=== PATIENT | female | born 1955 | race Caucasian/White ===

== ENCOUNTER 2017-12-12 23:01 | Emergency (ER) | payer OTHER ==
[~2017-12-12] VITALS: Ht 165.1 cm; Wt 136.1 kg
[2017-12-12 23:29] LABS: BASOPHILS # (AUTO) 0.1 (0.0-0.1); BASOPHILS % 0.8 % (0.0-1.0); EOSINOPHILS # (AUTO) 0.2 (0.0-0.4); EOSINOPHILS % 2.3 % (0.0-6.0); HEMATOCRIT 42.6 % (34.2-44.1); HEMOGLOBIN 13.7 g/dL (12.0-16.0); LYMPHOCYTES # (AUTO) 3.3 (1.0-3.2); LYMPHOCYTES % 39.3 % (18.0-39.1); MEAN CORPUSCULAR HEMOGLOBIN 28.6 pg (28-32); MEAN CORPUSCULAR HGB CONC 32.2 g/dL (31-35); MEAN CORPUSCULAR VOLUME 88.9 fL (81-99); MONOCYTES # (AUTO) 0.8 (0.2-0.8); NEUTROPHILS # (AUTO) 3.9 (2.1-6.9); NEUTROPHILS % 47.4 % (38.7-80.0); PLATELET COUNT 232 x10e3/uL (140-360); RED BLOOD COUNT 4.79 x10e6/uL (3.6-5.1); RED CELL DISTRIBUTION WIDTH 13.3 % (11.7-14.4)
[2017-12-12 23:35] LABS: INR 0.92; PARTIAL THROMBOPLASTIN TIME 37.1 seconds (23.8-35.5); PROTHROMBIN TIME 12.8 seconds (11.9-14.5)
[2017-12-12 23:45] LABS: ALANINE AMINOTRANSFERASE 21 IU/L (0-55); ALBUMIN 3.5 g/dL (3.5-5.0); ALKALINE PHOSPHATASE 111 IU/L (40-150); ANION GAP 12.7 mmol/L (8-16); BLOOD UREA NITROGEN 13 mg/dL (7-26); BUN/CREATININE RATIO 16 (6-25); CALCIUM 9.1 mg/dL (8.4-10.2); CARBON DIOXIDE 25 mmol/L (22-29); CHLORIDE 107 mmol/L (98-107); CREATINE KINASE 79 IU/L (29-168); EST GLOMERULAR FILTRATION RATE > 60 ML/MIN (60-); GLUCOSE 117 mg/dL (74-118); MAGNESIUM 1.8 MG/DL (1.3-2.1); POTASSIUM 3.7 mmol/L (3.5-5.1); SODIUM 141 mmol/L (136-145)
[2017-12-12 23:51] LABS: TROPONIN I < 0.001 ng/mL (0-0.300)
[2017-12-13 03:02] LABS: TROPONIN I 0.005 ng/mL (0-0.300)
[2017-12-13 03:14] VITALS: BP 128/83
--- NOTE | 2017-12-13 04:31 | Diagnostic Imaging Report ---
2 views of the chest, PA and lateral Technique: 2 views of the chest Comparison: None Clinical history: Chest pain with rapid heart rate DISCUSSION: Heart/mediastinum: Mildly tortuous aorta. Heart size is upper limits of normal. Lungs/pleural spaces: No consolidation or edema, effusion or pneumothorax. IMPRESSION: No acute abnormality Signed by: Dr Lizette Galo MD on 12/13/2017 12:45 AM
== END 2017-12-13 03:42 | disposition home or self-care (01) ==
LOC: ER 23:01
DX: R00.2 Palpitations (principal); I48.0 Paroxysmal atrial fibrillation; I10 Essential (primary) hypertension
CPT/HCPCS: 36415; 71020; 80053; 82550; 82553; 83735; 83880; 84484; 85025; 85610; 85730; 93005; 99284

== ENCOUNTER 2018-08-30 18:23 | Emergency (ER) | payer OTHER ==
[~2018-08-30] VITALS: Ht 165.1 cm; Wt 136.1 kg
[2018-08-30] MEDS ORDERED: KETOROLAC TROMETHAMINE 60 MG/2 ML VIAL IM ONE (18:45)
--- NOTE | 2018-08-30 19:22 | Diagnostic Imaging Report ---
EXAM: KNEE RIGHT THREE VIEWS, AP, crosstable lateral and oblique, nonstanding INDICATION: Knee pain after extra exercise is COMPARISON: None FINDINGS: BONES: No acute fractures. JOINTS: No malalignment. SOFT TISSUES: Large joint effusion. IMPRESSION: Large joint effusion without underlying fracture. Signed by: Dr. Huyen Wright M.D. on 08/30/2018 7:18 PM
[2018-08-30] MEDS ORDERED: DEXAMETHASONE SOD PHOS 10 MG/1 ML VIAL INJ ONE (19:30)
[2018-08-30] MEDS ORDERED: ORPHENADRINE CITRATE 30 MG/ML VIAL IM ONE (20:00)
[2018-08-30 22:10] VITALS: BP 159/67
--- OUTSIDE RECORDS SUMMARY | 2018-09-01 14:08 | XMS REPORT | CCD ---
Author Author Auto Generated Organization [facility] [place] Address Unknown Phone Unavailable Care Team Providers Care Yield Engineer Name Role Phone Kayley Broussard CP [phone] ChartServer, Login CP Unavailable Daniella Lopez CP Rosa Isela Laguna CP Unavailable Gerald Bruno CP Allergies, Adverse Reactions, Alerts Substance Reaction Status aspirin ?? Active Toradol ?? Active Problem List Condition Effective Dates Status Pain ?? Active
--- OUTSIDE RECORDS SUMMARY | 2018-09-01 14:08 | XMS REPORT | Continuity of Care Document ---
Author Author [facility] Organization Interface Address Unknown Phone Unavailable Problems Problem Status Onset Date Classification Date Reported Comments Source RIGHT KNEE Active 07/24/2018 [facility] [place] UNK Active 07/17/2018 [facility] S83.241A Active 07/17/2018 [facility] RT KNEE Active 04/24/2018 [facility] [place] RIGHT KNEE SCOPE Active 04/23/2018 [facility] KNEE ARTHROSCOPY Active 04/21/2018 [facility] Pain in right knee 02/20/2018 05/22/2018 [facility] M25.561 - PAIN IN RIGHT KNEE 782.3 - OREN Active 02/06/2018 [facility] Z12.31 - ENCNTR SCREEN MAMMOGRAM FOR MA Active 03/07/2017 [place] ENDOMETRIAL HYPERPLASIA Active 08/09/2011 [facility] Pain Active Problem 10/04/2011 SUDHIR Hicks,[facility] Pain Active Problem 06/09/2018 SUDHIR Hicks, [place]UDHIR [place], [place],[facility] [place] Edema, unspecified 05/15/2018 SUDHIR Amanda Bilateral primary osteoarthritis of knee 05/15/2018 SUDHIR Amanda Effusion, right knee 05/22/2018 SUDHIR Hicks ENDOMETRIAL HYPERPLA NOS Active [facility] Medications Medication Details Route Status Patient Instructions Ordering Provider Order Date Source Phenergan 25 mg, Route: IM, ONCE, Dosing Weight 140.909, kg, Start date: 04/24/18 9:38:00 CDT, Stop date: 04/24/18 9:38:00 CDT Inactive 04/24/2018 Pamela 72 HR Scopolamine 0.0139 MG/HR Transdermal Patch 1 patch, Route: TOP, Drug Form: ERFILM, Dosing Weight 140.909, kg, ONCE, Start date: 04/24/18 9:21:00 CDT, Stop date: 04/24/18 9:21:00 CDT Inactive 04/24/2018 [facility] Dexamethasone 4 mg, Route: IVP, ONCE, Dosing Weight 140.909, kg, PRN Nausea & Vomiting, Start date: 04/24/18 8:44:00 CDT Inactive 04/24/2018 [facility] Ondansetron 4 mg, Route: IVP, ONCE, Dosing Weight 140.909, kg, PRN Nausea & Vomiting, Start date: 04/24/18 8:44:00 CDT Inactive 04/24/2018 [facility] Diphenhydramine 12.5 mg, Route: IVP, Drug form: INJ, Q6H, Dosing Weight 140.909, kg, PRN Itching, Start date: 04/24/18 8:44:00 CDT, Duration: 30 day, Stop date: 05/24/18 8:43:00 CDT Inactive 04/24/2018 [facility] Acetaminophen 1,000 mg, Route: PO, Drug form: TAB, ONCE, Dosing Weight 140.909, kg, PRN Pain Score 1-3, Start date: 04/24/18 8:44:00 CDT Inactive 04/24/2018 [facility] Oxycodone 5 mg, Route: PO, Drug form: TAB, Q4H, Dosing Weight 140.909, kg, PRN Pain Score 4-6, Start date: 04/24/18 8:44:00 CDT, Duration: 30 day, Stop date: 05/24/18 8:43:00 CDT Inactive 04/24/2018 [facility] Labetalol 10 mg, Route: IVP, Q5Min, Dosing Weight 140.909, kg, PRN Elevated BP, Start date: 04/24/18 8:44:00 CDT, Duration: 5 doses or times, Stop date: Limited # of times Inactive 04/24/2018 [facility] esmolol 10 mg, Route: IVP, Q5Min, Dosing Weight 140.909, kg, PRN Other -See Comment, Start date: 04/24/18 8:44:00 CDT, Duration: 5 doses or times, Stop date: Limited # of times Inactive 04/24/2018 [facility] Hydralazine 10 mg, Route: IVP, Q20Min, Dosing Weight 140.909, kg, PRN Elevated BP, Start date: 04/24/18 8:44:00 CDT, Duration: 2 doses or times, Stop date: Limited # of times Inactive 04/24/2018 [facility] Flumazenil 0.2 mg, Route: IVP, PRN, Dosing Weight 140.909, kg, PRN Benzodiazepine Reversal, Initial dose, Start date: 04/24/18 8:44:00 CDT, Duration: 30 day, Stop date: 05/24/18 8:43:00 CDT Inactive 04/24/2018 [facility] Fentanyl 50 microgram, Route: IVP, Q5Min, Dosing Weight 140.909, kg, PRN Pain Score 7-10, Priority: Routine, Start date: 04/24/18 8:44:00 CDT, Duration: 2 doses or times, Stop date: Limited # of times Inactive 04/24/2018 [facility] Hydromorphone 0.5 mg, Route: IVP, Q5Min, Dosing Weight 140.909, kg, PRN Pain Score 7-10, Start date: 04/24/18 8:44:00 CDT, Duration: 4 doses or times, Stop date: Limited # of times Inactive 04/24/2018 [facility] Morphine 4 mg, Route: IVP, Q5Min, Dosing Weight 140.909, kg, PRN Pain Score 7-10, Start date: 04/24/18 8:44:00 CDT, Duration: 3 doses or times, Stop date: Limited # of times Inactive 04/24/2018 [facility] Meperidine 12.5 mg, Route: IVP, Q30Min, Dosing Weight 140.909, kg, PRN Other -See Comment, For shivering, Start date: 04/24/18 8:44:00 CDT, Duration: 2 doses or times, Stop date: Limited # of times Inactive 04/24/2018 [facility] Naloxone 0.4 mg, Route: IVP, Q2MIN, Dosing Weight 140.909, kg, PRN Narcotic Reversal, Start date: 04/24/18 8:44:00 CDT, Duration: 8 doses or times, Stop date: Limited # of times Inactive 04/24/2018 [facility] Calcium Chloride 0.0014 MEQ/ML / Potassium Chloride 0.004 MEQ/ML / Sodium Chloride 0.103 MEQ/ML / Sodium Lactate 0.028 MEQ/ML Injectable Solution 1,000 mL, Rate: 125 ml/hr, Infuse over: 8 hr, Route: IV, Dosing Weight 140.909 kg, Total Volume: 1,000, Start date: 04/24/18 8:44:00 CDT, Duration: 30 day, Stop date: 05/24/18 8:43:00 CDT, 2.59, m2 Inactive 04/24/2018 [facility] Zofran 4 mg, 2 mL, Route: IV, Drug form: INJ, Q8H, Dosing Weight 140.909, kg, PRN Nausea, Start date: 04/24/18 8:28:00 CDT, Duration: 30 day, Stop date: 05/24/18 8:27:00 CDTNotes: (Same as: Zofran) MEDICATION WASTE Product Size: 4 mg Product Wasted: ___ mg Inactive 04/24/2018 [facility] Acetaminophen 325 MG / Oxycodone Hydrochloride 5 MG Oral Tablet [Percocet 5/325] 2 tab, Route: PO, Drug Form: TAB, Dosing Weight 140.909, kg, Q4H, PRN Other -See Comment, Start date: 04/24/18 8:28:00 CDT, Duration: 30 day, Stop date: 05/24/18 8:27:00 CDTNotes: Do not exceed 4gm/day of acetaminophen. (Same as: Percocet-5/325) Inactive 04/24/2018 [facility] Morphine 2 mg, 2 mL, Route: IVP, Drug form: SOLN, Q3H, Dosing Weight 140.909, kg, PRN Pain Score 1-3, Start date: 04/24/18 8:28:00 CDT, Duration: 30 day, Stop date: 05/24/18 8:27:00 CDTNotes: Preservative free. (Same as: Morphine Sulfate-PF) Inactive 04/24/2018 [facility] ondansetron (ANES) Route: IV, Drug form: INJ, ONCE, Stop date: 04/24/18 8:27:00 CDT Inactive 04/24/2018 [facility] acetaminophen (ANES) Route: IV, Drug form: INJ, ONCE, Stop date: 04/24/18 8:27:00 CDT Inactive 04/24/2018 [facility] dexamethasone (ANES) Route: IV, Drug form: INJ, ONCE, Stop date: 04/24/18 8:27:00 CDT Inactive 04/24/2018 [facility] hydromorphone (ANES) Route: IV, Drug form: INJ, ONCE, Stop date: 04/24/18 8:27:00 CDT Inactive 04/24/2018 [facility] ceFAZolin (ANES) Route: IV, Drug form: INJ, ONCE, Stop date: 04/24/18 8:22:00 CDT Inactive 04/24/2018 [facility] propofol (ANES) Route: IV, Drug form: INJ, ONCE, Stop date: 04/24/18 8:22:00 CDT Inactive 04/24/2018 [facility] lidocaine (ANES) Route: IV, Drug form: INJ, ONCE, Stop date: 04/24/18 8:22:00 CDT Inactive 04/24/2018 [facility] midazolam (ANES) Route: IV, Drug form: SOLN, ONCE, Stop date: 04/24/18 8:22:00 CDT Inactive 04/24/2018 [facility] fentaNYL (ANES) Route: IV, Drug form: INJ, ONCE, Stop date: 04/24/18 8:12:00 CDT Inactive 04/24/2018 [facility] Lactated Ringers Injection IV (ANES) 1000 mL Route: IV, Total Volume: 1,000, Start date: 04/24/18 7:27:00 CDT, Stop date: 04/24/18 8:27:00 CDT Inactive 04/24/2018 [facility] 72 HR Scopolamine 0.0139 MG/HR Transdermal Patch 1 patch, Route: TOP, Drug Form: ERFILM, Dosing Weight 140.909, kg, ONCE, Start date: 04/24/18 7:04:00 CDT, Stop date: 04/24/18 7:04:00 CDT Inactive 04/24/2018 [facility] Lactated Ringers IV 1,000 mL 1,000 mL, Rate: 40 ml/hr, Infuse over: 25 hr, Route: IV, Dosing Weight 140.909 kg, Total Volume: 1,000, Start date: 04/24/18 6:34:00 CDT, Duration: 30 day, Stop date: 05/24/18 6:33:00 CDT, 2.59, m2 Inactive 04/24/2018 [facility] AMIODarone 100 mg oral tablet 200 mg=2 tab, PO, Daily Active 04/22/2018 [facility] apixaban 5 MG Oral Tablet [Eliquis] 5 mg, PO, Q12H Active 04/22/2018 [facility] Premarin Vaginal 1 appl, Route: VAG, Bedtime, Drug form: CRM/A, Start date: 08/23/11 21:00:00, Duration: 30 day, Stop date: 09/21/11 21:00:00 VAG No Longer Active Curtis 08/24/2011 [facility] nitrofurantoin macrocrystals 100 mg oral capsule 100 mg, 1 cap, PO, Daily, 14 cap, 0, 0, Substitution Allowed, Take until suh catheter removed, CAPTake until suh catheter removed PO Active [place] 08/23/2011 [facility] ibuprofen 600 mg oral tablet 600 mg, 1 tab, PO, Q6H, PRN, 30 tab, 1, 1, Pain, Substitution Allowed, take with foodtake with food PO Active [place] 08/23/2011 [facility] docusate sodium 100 mg oral capsule 100 mg, 1 cap, PO, BID, 60 cap, 1, 1, Substitution Allowed, CAP PO Active [place] 08/23/2011 [facility] acetaminophen-hydrocodone 500 mg-5 mg oral tablet 2 tab, PO, Q6H, PRN, 40 tab, 0, 0, Pain, Substitution Allowed, Maintenance, TAB PO Active [place] 08/23/2011 [facility] Deep Sea Nasal [place] 4 spray, Route: NASAL, QID, Drug form: SOLN, Start date: 08/23/11 13:00:00, Duration: 30 day, Stop date: 09/22/11 9:00:00 NASAL No Longer Active Curtis 08/23/2011 [facility] Mylicon 80 mg, 1 tab, Route: CHEW, Drug form: CHEWTAB, Q6H, Start date: 08/23/11 12:00:00, Duration: 30 day, Stop date: 09/22/11 6:00:00 CHEW No Longer Active Curtis 08/23/2011 [facility] docusate sodium 100 mg, 1 cap, Route: PO, Drug form: CAP, BID, Start date: 08/23/11 11:00:00, Duration: 30 day, Stop date: 09/22/11 9:00:00 PO No Longer Active Curtis 08/23/2011 [facility] Advil 600 mg, 3 tab, Route: PO, Drug form: TAB, Q6H, PRN Pain, Start date: 08/23/11 10:32:00, Duration: 30 day, Stop date: 09/22/11 10:31:00 PO No Longer Active Curtis 08/23/2011 [facility] Deep Sea Nasal [place] 3 spray, Route: NASAL, QID, Drug form: SOLN, Start date: 08/23/11 10:20:00, Duration: 30 day, Stop date: 09/22/11 9:00:00 NASAL No Longer Active Curtis 08/23/2011 [facility] acetaminophen-hydrocodone 500 mg-5 mg oral tablet 2 tab, Route: PO, Drug Form: TAB, Q6H, PRN Pain, Start date: 08/23/11 10:11:00, Duration: 30 day, Stop date: 09/22/11 10:10:00 PO No Longer Active Curtis 08/23/2011 [facility] pneumococcal 23-valent vaccine 0.5 ml, Route: IM, Drug Form: INJ, Start date: 08/23/11 9:00:00, Stop date: 08/23/11 9:00:00 IM No Longer Active [place] [facility]23[facility]2011 [facility], inactivated 0.5 mL, Route: IM, Drug Form: INJ, Start date: 08/23/11 9:00:00, Stop date: 08/23/11 9:00:00 IM No Longer Active SYSTEM 08/23/2011 SUDHIR Hicks,[facility] Pepcid 20 mg, 2 mL, Route: IVP, Drug form: INJ, Q12H, Start date: 08/23/11 9:00:00, Duration: 30 day, Stop date: 09/21/11 21:00:00 IVP No Longer Active Kelvin 08/23/2011 [facility] Lovenox 40 mg, 0.4 mL, Route: SUB-Q, Drug form: INJ, Daily, Start date: 08/23/11 9:00:00, Duration: 30 day, Stop date: 09/21/11 9:00:00 SUB-Q No Longer Active Kelvin 08/23/2011 [facility] nitrofurantoin 100 mg, 1 cap, Route: PO, Drug form: CAP, Daily, Start date: 08/23/11 9:00:00, Duration: 30 day, Stop date: 09/21/11 9:00:00 PO No Longer Active Villatoro 08/23/2011 [facility] morphine 1 mg/ml ROLLER CLEANER (30 mg/30 mL) INJ Syringe 30 mg 30 mg, 30 mL, Route: IV, ROLLER CLEANER Dose: 1 mg, ROLLER CLEANER Lockout: 10 minutes, Continuous Basal Rate: 0 mg, 4 Hour Limit (In MG): 24, Drug Form: INJ, Continuous, Start date: 08/22/11 22:00:00, Duration: 30 day, Stop date: 09/21/11 21:59:00 IV No Longer Active Kelvin 08/23/2011 [facility] Sodium Chloride 0.9% IV 1,000 mL 1,000 mL, Rate: 100 ml/hr, Infuse over: 10 hr, Route: IV, Total Volume: 1,000, Start date: 08/22/11 21:48:00, Duration: 30 day, Stop date: 09/21/11 21:47:00 IV No Longer Active Kelvin 08/23/2011 [facility] Benadryl 25 mg, 0.5 mL, Route: IV, Drug form: INJ, Q6H, PRN Itching, Start date: 08/22/11 21:46:00, Duration: 30 day, Stop date: 09/21/11 21:45:00 IV No Longer Active Kelvin 08/23/2011 [facility] Phenergan 25 mg, 1 mL, Route: IVPB, Drug form: INJ, Q4H, PRN Nausea & Vomiting, Start date: 08/22/11 21:45:00, Duration: 30 day, Stop date: 09/21/11 21:44:00 IVPB No Longer Active Kelvin 08/23/2011 [facility] promethazine 6.25 mg, 0.25 mL, Route: IVPB, Drug form: INJ, ONCE, Start date: 08/22/11 18:54:00, Stop date: 08/22/11 18:54:00 IVPB No Longer Active Kelvin 08/22/2011 [facility] Benadryl 25 mg, Route: IVP, ONCE, PRN Insomnia, Start date: 08/22/11 17:51:00 IVP No Longer Active [place] 08/22/2011 [facility] flumazenil 0.2 mg, 2 mL, Route: IVP, Drug form: INJ, PRN, PRN Other -See Comment, Initial dose, Start date: 08/22/11 16:45:00, Duration: 30 day, Stop date: 09/21/11 16:44:00 IVP No Longer Active [place] 08/22/2011 [facility] naloxone 0.04 mg, 0.1 mL, Route: IVP, Drug form: INJ, Q2MIN, PRN Narcotic Reversal, Start date: 08/22/11 16:45:00, Duration: 8 doses or times, Stop date: Limited # of times IVP No Longer Active [place] 08/22/2011 [facility] promethazine 6.25 mg, 0.25 mL, Route: IVPB, Drug form: INJ, ONCE, Start date: 08/22/11 16:45:00, Stop date: 08/22/11 16:45:00 IVPB No Longer Active [place] 08/22/2011 [facility] ondansetron 4 mg, 2 mL, Route: IVP, Drug form: INJ, ONCE, PRN Nausea & Vomiting, Start date: 08/22/11 16:45:00 IVP No Longer Active [place] 08/22/2011 [facility] acetaminophen 10 mg/mL intravenous solution 1,000 mg, 100 mL, Route: IV, Drug form: INJ, ONCE, PRN Pain, Start date: 08/22/11 16:45:00, Duration: 1 doses or times, Stop date: Limited # of times, Infuse over 15 minutes (for patient weight 50 kg or greater)Infuse over 15 minutes (for patient weight 50 kg or greater) IV No Longer Active [place] 08/22/2011 [facility] hydromorphone 0.5 mg, 0.25 mL, Route: IVP, Drug form: INJ, Q5Min, PRN Pain, Start date: 08/22/11 16:45:00, Duration: 5 doses or times, Stop date: Limited # of times IVP No Longer Active [place] 08/22/2011 [facility] heparin 5,000 unit, Route: SUB-Q, ONCE, Start date: 08/22/11 8:03:00, Stop date: 08/22/11 8:03:00 SUB-Q No Longer Active [place] 08/22/2011 [facility] cefazolin 1 gm, Route: IVPB, Drug form: PDR/INJ, PRE OP, Start date: 08/22/11 3:00:00, Duration: 1 day, Stop date: 08/23/11 2:59:00 IVPB No Longer Active [place] 08/22/2011 [facility] enalapril 5 mg oral tablet 1 tab, PO, Daily, 30 tab, Substitution Allowed, TAB PO Active 08/20/2011 [facility] hydrochlorothiazide 12.5 mg oral capsule 1 cap, PO, Daily, 30 cap, Substitution Allowed PO Active 08/20/2011 [facility] Allergies, Adverse Reactions, Alerts Substance Category Reaction Severity Reaction type Status Date Reported Comments Source aspirin Assertion Drug allergy Active SUDHIR Hicks Toradol Assertion Drug allergy Active SUDHIR Hicks EPINEPHrine Assertion Drug allergy Active SUDHIR Hicks Immunizations Immunization Date Given Site Status Last Updated Comments Source pneumococcal 23-valent vaccine 08/23/2011 Left deltoid completed [place] [facility] [place] influenza virus [facility], inactivated 08/23/2011 Left deltoid completed [place] [facility] [place] pneumococcal 23-valent vaccine 08/23/2011 completed [place] [facility], inactivated 08/23/2011 completed [place] [facility] Results Order Name Results Value Reference Range Date Interpretation Comments Source Knee wo contrast MRI Knee wo contrast MRI INDICATION: Medial and anterior knee pain for weeks. History is performed 04/26/2018. COMPARISON: MR examination performed on 06/06/2018 TECHNIQUE: Multiplanar, multisequence noncontrast imaging of the right knee. FINDINGS: Menisci: Medial meniscus: Absence of the inner two thirds of the meniscal body and inner 3rd of the posterior horn. Irregular morphology and edema of the remaining body. No paracentesis meniscal cyst. No involvement of the posterior root. Meniscocapsular ligaments are not well characterized. Focus of susceptibility artifact suspected posterior to the posterior horn (series 5 image 12). Meniscocapsular ligaments are not clearly identified. Lateral meniscus: Intact. Ligaments: The ACL, PCL, medial and lateral collateral ligaments and the capsular ligaments are intact. Extensor mechanism: The quadriceps tendon, patella and the patellar tendon are intact. Muscles: No signal abnormality in the muscles. Cartilage: High-grade cartilage loss throughout the weightbearing surface of the medial compartment. High-grade cartilage defects throughout the patellar apex and medial facet of the patella. Bone: No fractures identified. Visualized bone marrow signal is within normal limits. Soft tissue: Small joint effusion. No intra-articular joint bodies. No abnormality of the neurovascular structures. IMPRESSION: 1. Absence of inner portions of the medial meniscus body and posterior horn, is consistent with prior meniscectomy. Abnormal findings involving the remnant body could be postsurgical in nature or related to re-tear. 2. High-grade cartilage loss with areas of denuded cartilage in the weightbearing surface of the medial compartment and the medial facet/apex of the patella. 3. Small joint effusion without intra-articular joint bodies. SL: [id number] 08/14/2018 - - Read by: Lisa Lomeli MD Dictated Date/time: 08/14/18 18:32 Electronically Signed by: Lisa Lomeli MD 08/15/18 22:08 FINAL REPORT [place] [place] Knee wo contrast MRI Knee wo contrast MRI EXAMINATION: MRI of the right knee without contrast HISTORY: S83.241A Other tear of medial meniscus, current injury, right knee, initial encounter; medial right knee pain with history of arthroscopy in April 2018; right knee medial meniscus tear COMPARISON: Radiographs dated 02/06/2018 and prior MR dated 02/13/2018 are reviewed. TECHNIQUE: Multiplanar, multisequence magnetic resonance imaging of the right knee is performed with a local coil without contrast according to Dr. Barton's protocol with nearly all proton density weighted imaging. FINDINGS: Menisci: --Medial: There is a horizontal tear of the medial meniscus extending to the superior articular surface near the body/posterior horn junction, which appears new since January 2018 (series 6 and 7, image 5 through 6 and series 4 and 5, images 20 through 21). The medial meniscus is otherwise intact. --Lateral: The anterior horn, body, and posterior horn are intact. Ligaments: The cruciate ligaments are intact. The medial collateral ligament and lateral collateral ligament complex are intact. Extensor mechanism: The extensor mechanism is intact. Muscles: There is normal signal intensity and muscle bulk of the musculature at the knee. Cartilage: Within the medial compartment, there is deep partial thickness chondrosis involving the central and posterior weightbearing medial femoral condyle. Within the lateral compartment, there is no focal chondrosis or subchondral marrow edema. Within the patellofemoral compartment, there is a focal area of high-grade, deep partial thickness to near full-thickness chondrosis at the junction of the medial patellar facet and patellar median ridge at the superior third of the patella. Bone: There are no acute fractures. There is an unchanged small T2 hyperintense lesion within the medial femoral condyle most consistent with a low-grade chondroid lesion such as an enchondroma or chondroid rest. Soft tissues: There is a small to moderate-sized knee effusion. There is no Boateng's cyst. There is mild subcutaneous edema superficial to the patellar tendon. IMPRESSION: 1. Horizontal tear of the right knee medial meniscus which extends to the superior articular surface near the body/posterior horn junction, which appears new since January 2018. 2. Mild to moderate medial and patellofemoral compartment, bicompartmental chondrosis of the right knee as described in detail above. 3. Small to moderate-sized right knee effusion. 4. Intact right knee cruciate and collateral ligaments. 06/06/2018 - - Read by: David Lomas MD Dictated Date/time: 06/08/18 09:56 Electronically Signed by: David Lomas MD 06/08/18 10:39 FINAL REPORT [facility] [place] Chest w contrast CT Chest w contrast CT EXAM: CT CHEST WITH CONTRAST DATE: 05/01/2018 8:55 AM CDT INDICATION: - R93.8 Abnormal findings on diagnostic imaging of other specified body structures TECHNIQUE: Volumetric CT acquisition of the chest, following intravenous contrast. Axial, sagittal and coronal reconstructions. Axial MIP reconstructions are created at the acquisition workstation. IV Contrast: 100 mL of Omnipaque 300. DLP: 841 mGy-cm COMPARISON: No available prior chest CTs for comparison. FINDINGS: Lines and Tubes: None. Lower Neck: Few low-density thyroid nodules measuring 5 mm in size noted. Heart and Great Vessels: No cardiomegaly. No pericardial effusion. Minimal scattered calcifications seen along the left anterior descending and LCx coronary arteries. Mild aortic atherosclerotic disease. Normal size of the ascending aorta main pulmonary artery. No central pulmonary embolism identified. Lymph Nodes: No hilar, mediastinal, axillary or internal mammary lymphadenopathy. Lungs: Few tiny dense nodules scattered in both lungs, likely sequela of old granulomatous lung disease. Otherwise, lungs are clear, without consolidation or nodules. Pleura: No pleural effusion or pneumothorax. Upper abdomen: Postcholecystectomy surgical clips noted. Mild diffuse hepatic steatosis. Low-density lesion is seen in the right upper renal pole, likely represents renal cyst. Bones and Soft Tissues: Unremarkable. IMPRESSION: 1. Lungs are essentially clear with no evidence of consolidation or worrisome lung nodules. 2. No evidence of mediastinal masses or lymphadenopathy. 3. Minimal calcification seen along the left anterior descending and LCx coronary arteries as well as aorta. RECOMMENDATIONS: None. 05/01/2018 - - Read by: Cory Corado MD Dictated Date/time: 05/01/18 11:07 Electronically Signed by: Cory Corado MD 05/01/18 11:15 FINAL REPORT [facility] Chest 2 views DX Chest 2 views DX Exam: Two-view chest x-ray Reason for Exam: - [id number] Encounter for other preprocedural examination. Arthroscopy of the knee. Comparison Exam: None Discussion: Cardiac silhouette is within normal limits for size. The left hilar region appears slightly nodular. Short-term follow-up CT scan of the chest with contrast should be considered. Both hemidiaphragms well visualized. No pulmonary edema or pleural effusions. No focal lung consolidations. Trachea is midline. No acute bony abnormalities. Impression: 1. The left hilar region appears slightly nodular. Short-term follow-up CT scan of the chest with contrast should be considered. 04/22/2018 - - Read by: Haseeb Denton MD Dictated Date/time: 04/22/18 08:41 Electronically Signed by: Haseeb Denton MD 04/22/18 08:44 FINAL REPORT SUDHIR Virgena Knee wo contrast MRI Knee wo contrast MRI EXAMINATION: MRI of the right knee without contrast. HISTORY: M25.561 Pain in right knee - M25.561 Pain in right knee; AGE: 62 years GENDER: Female COMPARISON: There are no radiographs available for review. TECHNIQUE: Multiplanar, multisequence magnetic resonance imaging of the right knee is performed with an extremity coil without contrast. FINDINGS: Menisci: Medial: The anterior horn, body, and posterior horn are intact. Lateral: The anterior horn, body, and posterior horn are intact. Ligaments: The anterior cruciate ligament and posterior cruciate ligament are intact. The medial collateral ligament and lateral collateral ligament complex are intact. Extensor mechanism: The extensor mechanism is intact. Muscles: There is normal signal intensity and muscle bulk of the musculature at the knee. Cartilage: There is no significant reactive marrow change. The patellofemoral articular cartilage is intact.. The medial tibiofemoral articular cartilage demonstrates grade 2 chondral thinning.. The lateral tibiofemoral articular cartilage demonstrates grade 2 chondral thinning.. Bone: There are no acute fractures. 6 mm T2 hyperintense focus in the distal femoral metaphysis suggestive of chondral rest. Soft tissues: There is a large knee joint effusion. There is no Boateng's cyst. IMPRESSION: 1. Grade 2 chondral thinning in the tibiofemoral compartments without focal chondral defect. 2. Large knee joint effusion. 02/13/2018 - - Read by: Víctor Hernandez MD Dictated Date/time: 02/13/18 11:02 Electronically Signed by: Víctor Hernandez MD 02/13/18 11:26 FINAL REPORT YAMILE SUDHIR Hicks Knee 3 Views Bilateral DX Knee 3 Views Bilateral DX EXAM: XR BILATERAL KNEE 3 VIEWS DATE: 02/06/2018 2:51 PM CDT INDICATION: - knee pain COMPARISON: None available TECHNIQUE: Weightbearing views of right knee - 3 views Weightbearing views of left knee - 3 views FINDINGS: Right knee: No fracture, periosteal reaction, or erosions identified. Joint alignment is normal. No joint space narrowing identified. Minimal patellofemoral compartment osteophytes noted. Soft tissues are unremarkable. No joint effusion identified. Left knee: No fracture, periosteal reaction, or erosions identified. Joint alignment is normal. No joint space narrowing identified. Minimal patellofemoral compartment osteophytes noted. Soft tissues are unremarkable. No joint effusion identified. IMPRESSION: Minimal bilateral patellofemoral compartment osteoarthrosis. 02/06/2018 - - Read by: Jason Velasquez MD Dictated Date/time: 02/06/18 16:57 Electronically Signed by: Jason Velasquez MD 02/06/18 16:58 FINAL REPORT [facility] Breast Mammo Scrn RAO incl CAD MA Breast Mammo Scrn RAO incl CAD MA - BREAST MAMMO SCRN RAO INCL CAD MA BILATERAL DIGITAL SCREENING MAMMOGRAM WITH CAD: 03/29/2017 CLINICAL: Z12.31 Encounter For Screening Mammogram For Malignant Neoplasm Of Breast. Current study was evaluated with a Computer Aided Detection (CAD) system. Comparison is made to exams dated: 08/15/2014 mammogram, 05/31/2013 mammogram and 07/03/2011 mammogram. There are scattered fibroglandular densities in both breasts. There is a biopsy clip in the left breast. No significant masses, calcifications, or other findings are seen in either breast. There has been no significant interval change. IMPRESSION: NEGATIVE There is no mammographic evidence of malignancy. A 1 year screening mammogram is recommended. Professional services are provided by the [facility]. Rosana Acuna M.D., kg/penmikayla:04/02/2017 09:48:25 Repairer Screen Crusher: Clary Ponce This exam was dictated and interpreted by [id number] at [facility]. letter sent: Normal exam Mammogram BI-RADS: 1 Negative 03/29/2017 - - Read by: Rosana Acuna MD Dictated Date/time: 04/02/17 09:48 Electronically Signed by: Rosana Acuna MD 04/02/17 09:48 FINAL REPORT SUDHIR Hicks HEMATOLOGY Hct 30.5 % 36.0 - 48.0 08/23/2011 [facility] HEMATOLOGY Hgb 10.6 g/dL 12.0 - 16.0 08/23/2011 [facility] CHEMISTRY Magnesium Lvl 1.7 mg/dL 1.8 - 2.4 08/23/2011 [facility] CHEMISTRY Glucose Lvl 112.0 mg/dL 08/23/2011 NA 1Interpretive Data: Reference Ranges : 0 - 7 days : 41 - 90 mg/dL7 days - 150 yrs : 70 - 99 mg/dL (fasting), based on the clinical recommendations of the [place] [employer]. [facility] CHEMISTRY Sodium Lvl 142.0 meq/L 135 - 145 08/23/2011 Normal [facility] CHEMISTRY Creatinine Lvl 0.7 mg/dL 0.5 - 1.4 08/23/2011 Normal [facility] CHEMISTRY BUN 7.0 mg/dL 7 - 22 08/23/2011 Normal [facility] CHEMISTRY Chloride Lvl 107.0 meq/L 95 - 109 08/23/2011 Normal [facility] CHEMISTRY Potassium Lvl 4.5 meq/L 3.5 - 5.1 08/23/2011 Normal [facility] CHEMISTRY Albumin Lvl 2.7 g/dL 3.5 - 5.0 08/23/2011 [facility] CHEMISTRY ALT 75.0 U/L 0 - 65 08/23/2011 [facility] CHEMISTRY CO2 23.0 meq/L 24 - 32 08/23/2011 [facility]OW [facility] CHEMISTRY Calcium Lvl 7.7 mg/dL 8.5 - 10.5 08/23/2011 [facility] CHEMISTRY Total Protein 5.2 g/dL 6.4 - 8.4 08/23/2011 [facility] CHEMISTRY Alk Phos 66.0 U/L 39 - 136 08/23/2011 Normal [facility] CHEMISTRY Bili Total 0.4 mg/dL 0.2 - 1.3 08/23/2011 Normal [facility] CHEMISTRY AST 71.0 U/L 0 - 37 08/23/2011 [facility] CHEMISTRY Globulin 2.5 g/dL 2.0 - 4.0 08/23/2011 Normal [facility] CHEMISTRY A/G Ratio 1.1 0.7 - 1.6 08/23/2011 Normal [facility] CHEMISTRY AGAP 16.5 meq/L 10.0 - 20.0 08/23/2011 Normal [facility] CHEMISTRY B/C Ratio 10.0 6 - 25 08/23/2011 Normal [facility] HEMATOLOGY MPV 9.6 fL 7.4 - 10.4 08/23/2011 [facility] HEMATOLOGY MCH 29.9 pg 27.0 - 31.0 08/23/2011 [facility] HEMATOLOGY RDW 14.4 % 11.5 - 14.5 08/23/2011 Normal [facility] HEMATOLOGY Platelet 191.0 K/CMM 133 - 450 08/23/2011 [facility] HEMATOLOGY MCHC 35.2 g/dL 32.0 - 36.0 08/23/2011 [facility] HEMATOLOGY MCV 84.9 fL 81.0 - 99.0 08/23/2011 [facility] HEMATOLOGY Hct 31.1 % 36.0 - 48.0 08/23/2011 [facility] HEMATOLOGY WBC 12.4 K/CMM 3.7 - 10.4 08/23/2011 [facility] HEMATOLOGY Hgb 10.9 g/dL 12.0 - 16.0 08/23/2011 [facility] HEMATOLOGY RBC 3.66 M/CMM 4.20 - 5.40 08/23/2011 [facility] HEMATOLOGY Monocytes # 0.6 K/CMM 0.0 - 0.8 08/23/2011 [facility] HEMATOLOGY Basophils # 0.0 K/CMM 0.0 - 0.2 08/23/2011 [facility] HEMATOLOGY Eosinophils # 0.0 K/CMM 0.0 - 0.5 08/23/2011 Normal [facility] HEMATOLOGY Basophils 0.2 % 0.0 - 1.0 08/23/2011 [facility] HEMATOLOGY Monocytes 5.0 % 2.0 - 12.0 08/23/2011 [facility] HEMATOLOGY Eosinophils 0.1 % 0.0 - 4.0 08/23/2011 [facility] HEMATOLOGY Lymphocytes 7.7 % 20.0 - 40.0 08/23/2011 [facility] HEMATOLOGY Segs-Bands # 10.7 K/CMM 1.5 - 8.1 08/23/2011 [facility] HEMATOLOGY Lymphocytes # 0.9 K/CMM 1.0 - 5.5 08/23/2011 [facility] HEMATOLOGY Segs 87.0 % 45.0 - 75.0 08/23/2011 [facility] CHEMISTRY AGAP 16.4 meq/L 10.0 - 20.0 08/22/2011 Normal [facility] CHEMISTRY CO2 21.0 meq/L 24 - 32 08/22/2011 [facility] CHEMISTRY Calcium Lvl 7.5 mg/dL 8.5 - 10.5 08/22/2011 [facility] CHEMISTRY Creatinine Lvl 0.7 mg/dL 0.5 - 1.4 08/22/2011 Normal [facility] CHEMISTRY Glucose Lvl 146.0 mg/dL 08/22/2011 NA 2Interpretive Data: Reference Ranges : 0 - 7 days : 41 - 90 mg/dL7 days - 150 yrs : 70 - 99 mg/dL (fasting), based on the clinical recommendations of the [place] [employer]. [facility] CHEMISTRY BUN 10.0 mg/dL 7 - 22 08/22/2011 Normal [facility] CHEMISTRY Potassium Lvl 4.4 meq/L 3.5 - 5.1 08/22/2011 Normal [facility] CHEMISTRY Sodium Lvl 139.0 meq/L 135 - 145 08/22/2011 Normal [facility] CHEMISTRY Chloride Lvl 106.0 meq/L 95 - 109 08/22/2011 Normal [facility] HEMATOLOGY Eosinophils 0.1 % 0.0 - 4.0 08/22/2011 Normal [facility] HEMATOLOGY Basophils 0.1 % 0.0 - 1.0 08/22/2011 Normal [facility] HEMATOLOGY Segs-Bands # 12.2 K/CMM 1.5 - 8.1 08/22/2011 [facility] HEMATOLOGY Lymphocytes # 0.9 K/CMM 1.0 - 5.5 08/22/2011 [facility]OW [facility] HEMATOLOGY Monocytes # 0.1 K/CMM 0.0 - 0.8 08/22/2011 Normal [facility] HEMATOLOGY Eosinophils # 0.0 K/CMM 0.0 - 0.5 08/22/2011 Normal [facility] HEMATOLOGY Basophils # 0.0 K/CMM 0.0 - 0.2 08/22/2011 Normal [facility] HEMATOLOGY Segs 92.1 % 45.0 - 75.0 08/22/2011 [place] [facility] HEMATOLOGY Plt Morph Normal (08/22/2011 17:00:00) ?? 08/22/2011 Normal [facility] HEMATOLOGY Monocytes 0.8 % 2.0 - 12.0 08/22/2011 [facility]OW [facility] HEMATOLOGY Lymphocytes 6.9 % 20.0 - 40.0 08/22/2011 [facility] HEMATOLOGY RBC Morph Normal (08/22/2011 17:00:00) ?? 08/22/2011 Normal [facility] HEMATOLOGY MPV 9.9 fL 7.4 - 10.4 08/22/2011 Normal [facility] HEMATOLOGY Platelet 185.0 K/CMM 133 - 450 08/22/2011 Normal [facility] HEMATOLOGY RDW 14.0 % 11.5 - 14.5 08/22/2011 Normal [facility] HEMATOLOGY MCHC 34.4 g/dL 32.0 - 36.0 08/22/2011 Normal [facility] HEMATOLOGY MCH 29.2 pg 27.0 - 31.0 08/22/2011 Normal [facility] HEMATOLOGY Hct 36.6 % 36.0 - 48.0 08/22/2011 Normal [facility] HEMATOLOGY MCV 84.9 fL 81.0 - 99.0 08/22/2011 Normal [facility] HEMATOLOGY Hgb 12.6 g/dL 12.0 - 16.0 08/22/2011 Normal [facility] HEMATOLOGY RBC 4.31 M/CMM 4.20 - 5.40 08/22/2011 Normal [facility] HEMATOLOGY WBC 13.3 K/CMM 3.7 - 10.4 08/22/2011 [facility] CHEMISTRY POC A LA 0.6 mMol/L 0.5 - 2.2 08/22/2011 Normal [facility] CHEMISTRY POC A Glu 108.0 mg/dL 65 - 110 08/22/2011 Normal [facility] CHEMISTRY POC A Source ART 08/22/2011 NA [facility] CHEMISTRY POC A Temp 37.0 Rina 08/22/2011 NA [facility] CHEMISTRY POC A pH 7.39 7.35 - 7.45 08/22/2011 Normal [facility] CHEMISTRY POC A PO2 129.0 mm[Hg] 80 - 100 08/22/2011 [facility] CHEMISTRY POC A BE 1.0 mMol/L -2-2 - 2 08/22/2011 Normal [facility] CHEMISTRY POC A PCO2 43.0 mm[Hg] 35 - 45 08/22/2011 Normal [facility] CHEMISTRY POC A O2 Sat 99.0 % 95.0 - 100.0 08/22/2011 Normal [facility] CHEMISTRY POC A HCO3 26.0 mMol/L 22 - 26 08/22/2011 Normal [facility] CHEMISTRY POC A Ca Ion 1.04 mMol/L 1.16 - 1.30 08/22/2011 LOW [facility] CHEMISTRY POC A Na 135.0 meq/L 135 - 145 08/22/2011 Normal [facility] CHEMISTRY POC A Hct 39.0 % 36.0 - 48.0 08/22/2011 Normal [facility] CHEMISTRY POC A K 3.5 meq/L 3.5 - 5.1 08/22/2011 Normal [facility] BLOOD BANK RESULTS ABO/Rh AB NEG 08/22/2011 Unknown [facility] BLOOD BANK RESULTS Antibody Scrn Negative (08/22/2011 07:56:00) ?? 08/22/2011 Normal [facility] CHEMISTRY U Preg Negative (08/22/2011 06:55:00) ?? >Negative 08/22/2011 Normal [facility] CHEMISTRY Creatinine Lvl 0.7 mg/dL 0.5 - 1.4 08/20/2011 Normal [facility] CHEMISTRY BUN 10.0 mg/dL 7 - 22 08/20/2011 Normal [facility] CHEMISTRY Potassium Lvl 4.5 meq/L 3.5 - 5.1 08/20/2011 Normal [facility] CHEMISTRY Sodium Lvl 140.0 meq/L 135 - 145 08/20/2011 Normal [facility] CHEMISTRY Glucose Lvl 92.0 mg/dL 08/20/2011 NA 3Interpretive Data: Reference Ranges : 0 - 7 days : 41 - 90 mg/dL7 days - 150 yrs : 70 - 99 mg/dL (fasting), based on the clinical recommendations of the [place] [employer]. [facility] CHEMISTRY Calcium Lvl 8.9 mg/dL 8.5 - 10.5 08/20/2011 Normal [facility] CHEMISTRY Chloride Lvl 101.0 meq/L 95 - 109 08/20/2011 Normal [facility] CHEMISTRY CO2 30.0 meq/L 24 - 32 08/20/2011 Normal [facility] CHEMISTRY AGAP 13.5 meq/L 10.0 - 20.0 08/20/2011 Normal [facility] CHEMISTRY AST 22.0 U/L 0 - 37 08/20/2011 Normal [facility] CHEMISTRY Bili Total 0.4 mg/dL 0.2 - 1.3 08/20/2011 Normal [facility] CHEMISTRY Alk Phos 90.0 U/L 39 - 136 08/20/2011 Normal [facility] CHEMISTRY Bili Direct 0.1 mg/dL 0.0 - 0.3 08/20/2011 Normal [facility] CHEMISTRY ALT 30.0 U/L 0 - 65 08/20/2011 Normal [facility] CHEMISTRY Albumin Lvl 3.5 g/dL 3.5 - 5.0 08/20/2011 Normal [facility] CHEMISTRY Total Protein 7.0 g/dL 6.4 - 8.4 08/20/2011 Normal [facility] CHEMISTRY A/G Ratio 1.0 0.7 - 1.6 08/20/2011 Normal [facility] CHEMISTRY Globulin 3.5 g/dL 2.0 - 4.0 08/20/2011 Normal [facility] CHEMISTRY Bili Indirect 0.3 mg/dL 0.0 - 1.0 08/20/2011 Normal [facility] HEMATOLOGY Basophils 0.5 % 0.0 - 1.0 08/20/2011 Normal [facility] HEMATOLOGY Monocytes # 0.7 K/CMM 0.0 - 0.8 08/20/2011 Normal [facility] HEMATOLOGY Lymphocytes # 1.7 K/CMM 1.0 - 5.5 08/20/2011 Normal [facility] HEMATOLOGY Segs-Bands # 4.7 K/CMM 1.5 - 8.1 08/20/2011 Normal [facility] HEMATOLOGY Basophils # 0.0 K/CMM 0.0 - 0.2 08/20/2011 Normal [facility] HEMATOLOGY Eosinophils # 0.2 K/CMM 0.0 - 0.5 08/20/2011 Normal [facility] HEMATOLOGY Segs 64.3 % 45.0 - 75.0 08/20/2011 Normal [facility] HEMATOLOGY Eosinophils 2.3 % 0.0 - 4.0 08/20/2011 Normal [facility] HEMATOLOGY Monocytes 9.6 % 2.0 - 12.0 08/20/2011 Normal [facility] HEMATOLOGY Lymphocytes 23.3 % 20.0 - 40.0 08/20/2011 Normal [facility] HEMATOLOGY INR 0.99 0.85 - 1.17 08/20/2011 Normal 4Interpretive Data: RECOMMENDED RANGES FOR PROTIME INR: 2.0-3.0 for most medical and surgical thromboembolic states. 2.5-3.5 for artificial heart valves and recurrent embolism.INR SHOULD BE USED ONLY FOR PATIENTS ON STABLE ANTICOAGULANT THERAPY. [facility] HEMATOLOGY PT 13.1 s 12.0 - 14.7 08/20/2011 Normal [facility] HEMATOLOGY PTT 31.0 s 22.9 - 35.8 08/20/2011 Normal 5Interpretive Data: Heparin Therapeutic Range: 57 - 92 Seconds [facility] HEMATOLOGY Platelet 218.0 K/CMM 133 - 450 08/20/2011 Normal [facility] HEMATOLOGY MPV 9.8 fL 7.4 - 10.4 08/20/2011 Normal [facility] HEMATOLOGY MCV 86.6 fL 81.0 - 99.0 08/20/2011 Normal [facility] HEMATOLOGY MCH 29.3 pg 27.0 - 31.0 08/20/2011 Normal [facility] HEMATOLOGY RBC 4.69 M/CMM 4.20 - 5.40 08/20/2011 Normal [facility] HEMATOLOGY MCHC 33.8 g/dL 32.0 - 36.0 08/20/2011 Normal [facility] HEMATOLOGY RDW 13.9 % 11.5 - 14.5 08/20/2011 Normal [facility] HEMATOLOGY WBC 7.3 K/CMM 3.7 - 10.4 08/20/2011 Normal [facility] Vital Signs Vital Sign Value Date Comments Source Systolic (mm Hg) 128 04/24/2018 [facility] Diastolic (mm Hg) 94 04/24/2018 [facility] Respitory Rate 13 04/24/2018 [facility] Systolic (mm Hg) 132 04/24/2018 [facility] Diastolic (mm Hg) 88 04/24/2018 [facility] Respitory Rate 12 04/24/2018 [facility] Systolic (mm Hg) 138 04/24/2018 [facility] Diastolic (mm Hg) 72 04/24/2018 [facility] Respitory Rate 12 04/24/2018 [facility] Height 165.1 cm 04/22/2018 [facility] Weight 140.909 04/22/2018 [facility] BMI Calculated 51.69 04/22/2018 [facility] Diastolic (mm Hg) 59.0 08/23/2011 [facility] Respitory Rate 18.0 08/23/2011 [facility] Systolic (mm Hg) 89.0 08/23/2011 [facility] Heart Rate 69.0 08/23/2011 [facility] Temperature Oral (F) 97.8 F 08/23/2011 [facility] Heart Rate 79.0 08/23/2011 [facility] Respitory Rate 18.0 08/23/2011 [facility] Systolic (mm Hg) 97.0 08/23/2011 [facility] Diastolic (mm Hg) 62.0 08/23/2011 [facility] Temperature Oral (F) 97.4 F 08/23/2011 [facility] Temperature Oral (F) 98.0 F 08/23/2011 [facility] Heart Rate 76.0 08/23/2011 [facility] Respitory Rate 18.0 08/23/2011 [facility] Systolic (mm Hg) 90.0 08/23/2011 [facility] Diastolic (mm Hg) 57.0 08/23/2011 [facility] Height 165.1 cm 08/22/2011 [facility] Weight 122.727 08/22/2011 [facility] Height 165.1 cm 08/20/2011 [facility] Weight 122.727 08/20/2011 [facility] Encounters Location Location Details Encounter Type Encounter Number Reason For Visit Attending Provider ADM Date DC Date Status Source [facility] Inpatient [id number] BAM GONZALEZ 08/22/2011 08/23/2011 Active [facility] [place] [facility] [id number] David Stephen III 03/29/2017 03/30/2017 [facility] [place] [facility] Outpatient [facility] [place] [facility] [id number] Renetta Baron 02/06/2018 02/07/2018 [facility] [place] [facility] [place] [facility] [id number] Renetta Baron 02/13/2018 02/14/2018 [facility] [place] [facility] Out[facility] [place] [facility] [id number] Rogelio Veloz 04/22/2018 04/23/2018 [facility] [place] [facility] Day Surgery [id number] Salbador Barton Jr 04/24/2018 04/24/2018 [facility] [place] OP Therapy Patients [id number] Salbador Barton Jr 04/28/2018 05/28/2018 [facility] [place] [facility] Outpatient [facility] - [place] [facility] [id number] Rogelio Veloz 05/01/2018 05/02/2018 [facility] [place] [facility] Outpatient [facility] - [place] [facility] [id number] Salbador Barton Jr 06/06/2018 06/07/2018 [facility] [place] Procedures Procedure Code Date Perfomer Comments Source Abdominal hysterectomy [id number] [facility] [place] Bunionectomy [id number] [facility] [place] Dilation and curettage [id number] [facility] [place] Laparoscopic cholecystectomy [id number] [facility] [place] Abdominal hysterectomy [id number] [facility] [place] Bunionectomy [id number] [facility] [place] Dilation and curettage [id number] [facility] [place] Laparoscopic cholecystectomy [id number] [facility] [place] Abdominal hysterectomy [id number] [facility] Bunionectomy [id number] [facility] Dilation and curettage [id number] [facility] Laparoscopic cholecystectomy [id number] [facility] Abdominal hysterectomy [id number] [facility] [place] Bunionectomy [id number] [facility] [place] Dilation and curettage [id number] [facility] [place] Laparoscopic cholecystectomy [id number] [facility] [place]
--- OUTSIDE RECORDS SUMMARY | 2018-09-01 14:08 | XMS REPORT | Summary of Care ---
Author Author [facility] [place] Organization [facility] [place] Address Unknown Phone Unavailable Encounter HQ Jose_randall(FIN) [id number] Date(s): 04/22/18 - 04/22/18 [facility] Outpatient Imaging [facility] [address] [phone] Discharge Disposition: Home or Self Care Attending Physician: Rogelio Veloz MD Vital Signs No data available for this section Problem List Condition Effective Dates Status Health Status Informant Pain(Confirmed) Active Allergies, Adverse Reactions, Alerts Substance Reaction Severity Status aspirin Active Toradol Active EPINEPHrine Active Medications No data available for this section Results No data available for this section Immunizations Given and Recorded Vaccine Date Status Refusal Reason pneumococcal 23-valent vaccine 08/23/11 Given influenza virus vaccine, inactivated 08/23/11 Given Procedures Procedure Date Related Diagnosis Body Site Status Abdominal hysterectomy Completed Bunionectomy Completed Dilation and curettage Completed Laparoscopic cholecystectomy Completed Social History Social History Type Response Smoking Status Never smoker; Exposure to Tobacco Smoke None; Cigarette Smoking Last 365 Days No; Reg Smoking Cessation Counseling No entered on: 04/22/18 Assessment and Plan No data available for this section
--- OUTSIDE RECORDS SUMMARY | 2018-09-01 14:08 | XMS REPORT | CCD ---
Author Author Auto Generated Organization [facility] Outpatient Imaging - [place] Address Unknown Phone Unavailable Care Team Providers Care Hydro Plant Technician Name Role Phone Toby Lilia CP Unavailable Aarti Kayley CP [phone] ChartServer, Login CP Unavailable Peter Mayenissa Brian CP Daniella Lopez CP SYSTEM, SYSTEM CP Unavailable Allison Cyr PP Allergies, Adverse Reactions, Alerts Substance Reaction Status aspirin ?? Active Toradol ?? Active Problem List Condition Effective Dates Status Pain ?? Active Medications Medication Instructions Start Date End Date Status pneumococcal 0.5 ml, Route: IM, Drug Form: INJ, 08/23/2011 08/23/2011 Completed 23-valent vaccine Start date: 08/23/11 9:00:00, Stop date: 08/23/11 9:00:00 influenza virus 0.5 mL, Route: IM, Drug Form: INJ, 08/23/2011 08/23/2011 Completed vaccine, inactivated Start date: 08/23/11 9:00:00, Stop date: 08/23/11 9:00:00 Immunizations Vaccine Date Status influenza virus vaccine, inactivated 08/23/2011 Auth (Verified) pneumococcal 23-valent vaccine 08/23/2011 Auth (Verified)
--- OUTSIDE RECORDS SUMMARY | 2018-09-01 14:08 | XMS REPORT | Summary of Care ---
Author Author [facility] Outpatient Imaging [facility] Outpatient Imaging [facility] Address Unknown Phone Unavailable Encounter HQ Jose_randall(FIN) [id number] Date(s): 05/01/18 - 05/01/18 [facility] [address] [address] [facility], [address] [place] [phone] Discharge Disposition: Home or Self Care Attending [...]
--- OUTSIDE RECORDS SUMMARY | 2018-09-01 14:08 | XMS REPORT | Summary of Care ---
Author Author [facility] Outpatient Imaging - [place] Organization [facility] Outpatient Imaging - [place] Address Unknown Phone Unavailable Encounter HQ Encntr_[email or web address](FIN) [id number] Date(s): 03/29/17 - 03/29/17 [facility] Outpatient Imaging - [place] [address] [place] [phone] Discharge Disposition: Home or Self Care Attending Physician: David Baldwin MD Vital Signs No data available for this section Problem List Condition Effective Dates Status Health Status Informant Pain(Confirmed) Active Allergies, Adverse Reactions, Alerts Substance Reaction Severity Status aspirin Active Toradol Active Medications No data available for this section Results No data available for this section Immunizations Given and Recorded Vaccine Date Status Refusal Reason influenza virus vaccine, inactivated 08/23/11 Given pneumococcal 23-valent vaccine 08/23/11 Given Procedures No data available for this section Social History No data available for this section Assessment and Plan No data available for this section
--- OUTSIDE RECORDS SUMMARY | 2018-09-01 14:08 | XMS REPORT | CCD ---
Author Author Auto Generated Organization [facility] Address Unknown Phone Unavailable Care Team Providers Care Show Card Writer Name Role Phone YAMILE León CP Unavailable Rogelio Veloz CP Lilia Luis CP Unavailable Sydnie Lunsford CP Unavailable Haroldo Guajardo CP Unavailable Francisca Pritchard [place] Unavailable Wanda Robledo CP Unavailable Melanie Lilly CP Smiley Dejesus CP Unavailable Giana Hope CP Unavailable Clay Hooper CP Richelle Johnston CP Megan Jaffe CP Unavailable Rosana Sarmiento CP Unavailable Kayley Broussard CP [phone] Willie Barnes CP Unavailable Lópezfebruary CP Unavailable Maria Elena Peters CP Unavailable Luis Angel Trevino CP Gabriela Medina CP [phone] Natalee Espinosa CP Unavailable Uma Mayen RP Pradip Curtis CP Unavailable Daniella Lopez CP Kieran Acevedo CP Nadine Miguel CP [phone] Vibha Holcomb CP [phone] Ezio Muñoz CP Unavailable SYSTEM, SYSTEM CP Unavailable Kell Warren CP Unavailable Rashad Nunez CP Unavailable Alexa Reich CP Yamilka Villatoro CP Raven Reddy CP [phone] KaylenMalissa CP Unavailable Steven Peters CP [phone] Pablo Hicks CP Unavailable Marci Hope CP Kevin Rubin CP [phone] Beatriz Quezada CP Jean Yost CP Unavailable Octaviano Ram CP NedDana mckeon CP Gerald Bruno CP Allergies, Adverse Reactions, Alerts Substance Reaction Status aspirin ?? Active Toradol ?? Active Problem List Condition Effective Dates Status Pain ?? Active Medications Medication Instructions Start Date End Date Status heparin 5,000 unit, Route: SUB-Q, ONCE, 08/22/2011 08/22/2011 Completed Start date: 08/22/11 8:03:00, Stop date: 08/22/11 8:03:00 acetaminophen-hydroc 2 tab, PO, Q6H, PRN, 40 tab, 0, 0, 08/23/2011 ?? Ordered odone 500 mg-5 mg Pain, Substitution Allowed, oral tablet Maintenance, TAB influenza virus 0.5 mL, Route: IM, Drug Form: INJ, 08/23/2011 08/23/2011 Completed vaccine, inactivated Daily, Start date: 08/23/11 9:00:00, Duration: 1 doses or times, Stop date: 08/23/11 9:00:00 pneumococcal 0.5 ml, Route: IM, Drug Form: INJ, 08/23/2011 08/23/2011 Completed 23-valent vaccine Daily, Start date: 08/23/11 9:00:00, Duration: 1 doses or times, Stop date: 08/23/11 9:00:00 cefazolin 1 gm, Route: IVPB, Drug form: 08/22/2011 08/22/2011 Completed PDR/INJ, PRE OP, Start date: 08/22/11 3:00:00, Duration: 1 day, Stop date: 08/23/11 2:59:00 Sodium Chloride 0.9% 1,000 mL, Rate: 100 ml/hr, Infuse 08/22/2011 08/23/2011 Discontinued IV 1,000 mL over: 10 hr, Route: IV, Total Volume: 1,000, Start date: 08/22/11 21:48:00, Duration: 30 day, Stop date: 09/21/11 21:47:00 Advil 600 mg, 3 tab, Route: PO, Drug 08/23/2011 08/23/2011 Discontinued form: TAB, Q6H, PRN Pain, Start date: 08/23/11 10:32:00, Duration: 30 day, Stop date: 09/22/11 10:31:00 acetaminophen-hydroc 2 tab, Route: PO, Drug Form: TAB, 08/23/2011 08/23/2011 Discontinued odone 500 mg-5 mg Q6H, PRN Pain, Start date: 08/23/11 oral tablet 10:11:00, Duration: 30 day, Stop date: 09/22/11 10:10:00 nitrofurantoin 100 mg, 1 cap, PO, Daily, 14 cap, 08/23/2011 ?? Ordered macrocrystals 100 mg 0, 0, Substitution Allowed, Take oral capsule until suh catheter removed, CAP Take until suh catheter removed Benadryl 25 mg, 0.5 mL, Route: IV, Drug 08/22/2011 08/23/2011 Discontinued form: INJ, Q6H, PRN Itching, Start date: 08/22/11 21:46:00, Duration: 30 day, Stop date: 09/21/11 21:45:00 Phenergan 25 mg, 1 mL, Route: IVPB, Drug 08/22/2011 08/23/2011 Discontinued form: INJ, Q4H, PRN Nausea & Vomiting, Start date: 08/22/11 21:45:00, Duration: 30 day, Stop date: 09/21/11 21:44:00 Pepcid 20 mg, 2 mL, Route: IVP, Drug form: 08/23/2011 08/23/2011 Discontinued INJ, Q12H, Start date: 08/23/11 9:00:00, Duration: 30 day, Stop date: 09/21/11 21:00:00 Benadryl 25 mg, Route: IVP, ONCE, PRN 08/22/2011 08/22/2011 Completed Insomnia, Start date: 08/22/11 17:51:00 ibuprofen 600 mg 600 mg, 1 tab, PO, Q6H, PRN, 30 08/23/2011 ?? Ordered oral tablet tab, 1, 1, Pain, Substitution Allowed, take with food take with food Lovenox 40 mg, 0.4 mL, Route: SUB-Q, Drug 08/23/2011 08/23/2011 Discontinued form: INJ, Daily, Start date: 08/23/11 9:00:00, Duration: 30 day, Stop date: 09/21/11 9:00:00 Premarin Vaginal 1 appl, Route: VAG, Bedtime, Drug 08/23/2011 08/23/2011 Canceled form: CRM/A, Start date: 08/23/11 21:00:00, Duration: 30 day, Stop date: 09/21/11 21:00:00 Deep Sea Nasal [place] 4 spray, Route: NASAL, QID, Drug 08/23/2011 08/23/2011 Discontinued form: SOLN, Start date: 08/23/11 13:00:00, Duration: 30 day, Stop date: 09/22/11 9:00:00 pneumococcal 0.5 ml, Route: IM, Drug Form: INJ, 08/23/2011 08/23/2011 Completed 23-valent vaccine Start date: 08/23/11 9:00:00, Stop date: 08/23/11 9:00:00 influenza virus 0.5 mL, Route: IM, Drug Form: INJ, 08/23/2011 08/23/2011 Completed vaccine, inactivated Start date: 08/23/11 9:00:00, Stop date: 08/23/11 9:00:00 Deep Sea Nasal [place] 3 spray, Route: NASAL, QID, Drug 08/23/2011 08/23/2011 Discontinued form: SOLN, Start date: 08/23/11 10:20:00, Duration: 30 day, Stop date: 09/22/11 9:00:00 docusate sodium 100 100 mg, 1 cap, PO, BID, 60 cap, 1, 08/23/2011 ?? Ordered mg oral capsule 1, Substitution Allowed, CAP Mylicon 80 mg, 1 tab, Route: CHEW, Drug 08/23/2011 08/23/2011 Discontinued form: CHEWTAB, Q6H, Start date: 08/23/11 12:00:00, Duration: 30 day, Stop date: 09/22/11 6:00:00 nitrofurantoin 100 mg, 1 cap, Route: PO, Drug 08/23/2011 08/23/2011 Discontinued form: CAP, Daily, Start date: 08/23/11 9:00:00, Duration: 30 day, Stop date: 09/21/11 9:00:00 docusate sodium 100 mg, 1 cap, Route: PO, Drug 08/23/2011 08/23/2011 Discontinued form: CAP, BID, Start date: 08/23/11 11:00:00, Duration: 30 day, Stop date: 09/22/11 9:00:00 flumazenil 0.2 mg, 2 mL, Route: IVP, Drug 08/22/2011 08/22/2011 Discontinued form: INJ, PRN, PRN Other -See Comment, Initial dose, Start date: 08/22/11 16:45:00, Duration: 30 day, Stop date: 09/21/11 16:44:00 naloxone 0.04 mg, 0.1 mL, Route: IVP, Drug 08/22/2011 08/22/2011 Discontinued form: INJ, Q2MIN, PRN Narcotic Reversal, Start date: 08/22/11 16:45:00, Duration: 8 doses or times, Stop date: Limited # of times promethazine 6.25 mg, 0.25 mL, Route: IVPB, Drug 08/22/2011 08/22/2011 Discontinued form: INJ, ONCE, Start date: 08/22/11 16:45:00, Stop date: 08/22/11 16:45:00 ondansetron 4 mg, 2 mL, Route: IVP, Drug form: 08/22/2011 08/22/2011 Discontinued INJ, ONCE, PRN Nausea & Vomiting, Start date: 08/22/11 16:45:00 acetaminophen 10 1,000 mg, 100 mL, Route: IV, Drug 08/22/2011 08/22/2011 Completed mg/mL intravenous form: INJ, ONCE, PRN Pain, Start solution date: 08/22/11 16:45:00, Duration: 1 doses or times, Stop date: Limited # of times, Infuse over 15 minutes (for patient weight 50 kg or greater) Infuse over 15 minutes (for patient weight 50 kg or greater) hydromorphone 0.5 mg, 0.25 mL, Route: IVP, Drug 08/22/2011 08/22/2011 Discontinued form: INJ, Q5Min, PRN Pain, Start date: 08/22/11 16:45:00, Duration: 5 doses or times, Stop date: Limited # of times morphine 1 mg/ml MANAGEMENT SME 30 mg, 30 mL, Route: IV, MANAGEMENT SME Dose: 08/22/2011 08/23/2011 Discontinued (30 mg/30 mL) INJ 1 mg, MANAGEMENT SME Lockout: 10 minutes, Syringe 30 mg Continuous Basal Rate: 0 mg, 4 Hour Limit (In MG): 24, Drug Form: INJ, Continuous, Start date: 08/22/11 22:00:00, Duration: 30 day, Stop date: 09/21/11 21:59:00 promethazine 6.25 mg, 0.25 mL, Route: IVPB, Drug 08/22/2011 08/22/2011 Discontinued form: INJ, ONCE, Start date: 08/22/11 18:54:00, Stop date: 08/22/11 18:54:00 enalapril 5 mg oral 1 tab, PO, Daily, 30 tab, 08/20/2011 ?? Ordered tablet Substitution Allowed, TAB hydrochlorothiazide 1 cap, PO, Daily, 30 cap, 08/20/2011 ?? Ordered 12.5 mg oral capsule Substitution Allowed Immunizations Vaccine Date Status influenza virus vaccine, inactivated 08/23/2011 Auth (Verified) pneumococcal 23-valent vaccine 08/23/2011 Auth (Verified) Vital Signs Most recent to oldest [Reference Range]: 1 2 3 Height 165.10 cm (08/22/2011 07:26:00) ?? 165.10 cm (08/20/2011 15:51:00) ? Temperature Oral [96.4-99.1 DegF] 97.8 DegF (08/23/2011 15:15:00) ?? 97.4 DegF (08/23/2011 11:56:00) ?? 98.0 DegF (08/23/2011 08:47:00) ?? Systolic Blood Pressure [90-140 mmHg] 89 mmHg *LOW* (08/23/2011 15:15:00) ?? 97 mmHg (08/23/2011 11:56:00) ?? 90 mmHg (08/23/2011 08:47:00) ?? Diastolic Blood Pressure [60-90 mmHg] 59 mmHg *LOW* (08/23/2011 15:15:00) ?? 62 mmHg (08/23/2011 11:56:00) ?? 57 mmHg *LOW* (08/23/2011 08:47:00) ?? Respiratory Rate [14-20 BRMIN] 18 BRMIN (08/23/2011 15:15:00) ?? 18 BRMIN (08/23/2011 11:56:00) ?? 18 BRMIN (08/23/2011 08:47:00) ?? Peripheral Pulse Rate [60-100 bpm] 69 bpm (08/23/2011 15:15:00) ?? 79 bpm (08/23/2011 11:56:00) ?? 76 bpm (08/23/2011 08:47:00) ?? Weight 122.727 kg (08/22/2011 07:26:00) ?? 122.727 kg (08/20/2011 15:51:00) ? Results BLOOD BANK RESULTS Most recent to [Reference Range]: 1 2 3 ABO/Rh AB NEG *Unknown* (08/22/2011 07:56:00) ? Antibody Scrn Negative (08/22/2011 07:56:00) ? CHEMISTRY Most recent to [Reference Range]: 1 2 3 Sodium Lvl [135-145 mEq/L] 142 mEq/L (08/23/2011 04:14:00) ?? 139 mEq/L (08/22/2011 17:00:00) ?? 140 mEq/L (08/20/2011 10:25:00) ?? Potassium Lvl [3.5-5.1 mEq/L] 4.5 mEq/L (08/23/2011 04:14:00) ?? 4.4 mEq/L (08/22/2011 17:00:00) ?? 4.5 mEq/L (08/20/2011 10:25:00) ?? Chloride Lvl [95-109 mEq/L] 107 mEq/L (08/23/2011 04:14:00) ?? 106 mEq/L (08/22/2011 17:00:00) ?? 101 mEq/L (08/20/2011 10:25:00) ?? CO2 [24-32 mEq/L] 23 mEq/L *LOW* (08/23/2011 04:14:00) ?? 21 mEq/L *LOW* (08/22/2011 17:00:00) ?? 30 mEq/L (08/20/2011 10:25:00) ?? AGAP [10.0-20.0 mEq/L] 16.5 mEq/L (08/23/2011 04:14:00) ?? 16.4 mEq/L (08/22/2011 17:00:00) ?? 13.5 mEq/L (08/20/2011 10:25:00) ?? Creatinine Lvl [0.5-1.4 mg/dL] 0.7 mg/dL (08/23/2011 04:14:00) ?? 0.7 mg/dL (08/22/2011 17:00:00) ?? 0.7 mg/dL (08/20/2011 10:25:00) ?? BUN [7-22 mg/dL] 7 mg/dL (08/23/2011 04:14:00) ?? 10 mg/dL (08/22/2011 17:00:00) ?? 10 mg/dL (08/20/2011 10:25:00) ?? B/C Ratio [6-25] 10 (08/23/2011 04:14:00) ? Glucose Lvl 112 mg/dL 1 *NA* (08/23/2011 04:14:00) ?? 146 mg/dL 2 *NA* (08/22/2011 17:00:00) ?? 92 mg/dL 3 *NA* (08/20/2011 10:25:00) ?? Total Protein [6.4-8.4 g/dL] 5.2 g/dL *LOW* (08/23/2011 04:14:00) ?? 7.0 g/dL (08/20/2011 10:25:00) ? Albumin Lvl [3.5-5.0 g/dL] 2.7 g/dL *LOW* (08/23/2011 04:14:00) ?? 3.5 g/dL (08/20/2011 10:25:00) ? Globulin [2.0-4.0 g/dL] 2.5 g/dL (08/23/2011 04:14:00) ?? 3.5 g/dL (08/20/2011 10:25:00) ? A/G Ratio [0.7-1.6] 1.1 (08/23/2011 04:14:00) ?? 1.0 (08/20/2011 10:25:00) ? Calcium Lvl [8.5-10.5 mg/dL] 7.7 mg/dL *LOW* (08/23/2011 04:14:00) ?? 7.5 mg/dL *LOW* (08/22/2011 17:00:00) ?? 8.9 mg/dL (08/20/2011 10:25:00) ?? Magnesium Lvl [1.8-2.4 mg/dL] 1.7 mg/dL *LOW* (08/23/2011 04:14:00) ? ALT [0-65 U/L] 75 U/L *HI* (08/23/2011 04:14:00) ?? 30 U/L (08/20/2011 10:25:00) ? AST [0-37 U/L] 71 U/L *HI* (08/23/2011 04:14:00) ?? 22 U/L (08/20/2011 10:25:00) ? Alk Phos [39-136 U/L] 66 U/L (08/23/2011 04:14:00) ?? 90 U/L (08/20/2011 10:25:00) ? Bili Total [0.2-1.3 mg/dL] 0.4 mg/dL (08/23/2011 04:14:00) ?? 0.4 mg/dL (08/20/2011 10:25:00) ? Bili Direct [0.0-0.3 mg/dL] 0.1 mg/dL (08/20/2011 10:25:00) ? Bili Indirect [0.0-1.0 mg/dL] 0.3 mg/dL (08/20/2011 10:25:00) ? U Preg [>Negative] Negative (08/22/2011 06:55:00) ? POC A Hct [36.0-48.0 %] 39.0 % (08/22/2011 11:40:00) ? POC A Ca Ion [1.16-1.30 mMol/L] 1.04 mMol/L *LOW* (08/22/2011 11:40:00) ? POC A K [3.5-5.1 mEq/L] 3.5 mEq/L (08/22/2011 11:40:00) ? POC A Source ART *NA* (08/22/2011 11:40:00) ? POC A Temp 37.0 DegC *NA* (08/22/2011 11:40:00) ? POC A pH [7.35-7.45] 7.39 (08/22/2011 11:40:00) ? POC A PCO2 [35-45 mmHg] 43 mmHg (08/22/2011 11:40:00) ? POC A PO2 [80-100 mmHg] 129 mmHg *HI* (08/22/2011 11:40:00) ? POC A HCO3 [22-26 mMol/L] 26 mMol/L (08/22/2011 11:40:00) ? POC A BE [-2-2 mMol/L] 1 mMol/L (08/22/2011 11:40:00) ? POC A O2 Sat [95.0-100.0 %] 99.0 % (08/22/2011 11:40:00) ? POC A Glu [65-110 mg/dL] 108 mg/dL (08/22/2011 11:40:00) ? POC A LA [0.5-2.2 mMol/L] 0.6 mMol/L (08/22/2011 11:40:00) ? POC A Na [135-145 mEq/L] 135 mEq/L (08/22/2011 11:40:00) ? 1Interpretive Data: Reference Ranges : 0 - 7 days : 41 - 90 mg/dL7 days - 150 yrs : 70 - 99 mg/dL (fasting), based on the clinical recommendations of the [place] [employer]. 2Interpretive Data: Reference Ranges : 0 - 7 days : 41 - 90 mg/dL7 days - 150 yrs : 70 - 99 mg/dL (fasting), based on the clinical recommendations of the [place] [employer]. 3Interpretive Data: Reference Ranges : 0 - 7 days : 41 - 90 mg/dL7 days - 150 yrs : 70 - 99 mg/dL (fasting), based on the clinical recommendations of the [place] [employer]. HEMATOLOGY Most recent to oldest [Reference Range]: 1 2 3 WBC [3.7-10.4 K/CMM] 12.4 K/CMM *HI* (08/23/2011 04:14:00) ?? 13.3 K/CMM *HI* (08/22/2011 17:00:00) ?? 7.3 K/CMM (08/20/2011 10:25:00) ?? RBC [4.20-5.40 M/CMM] 3.66 M/CMM *LOW* (08/23/2011 04:14:00) ?? 4.31 M/CMM (08/22/2011 17:00:00) ?? 4.69 M/CMM (08/20/2011 10:25:00) ?? Hgb [12.0-16.0 g/dL] 10.6 g/dL *LOW* (08/23/2011 14:15:00) ?? 10.9 g/dL *LOW* (08/23/2011 04:14:00) ?? 12.6 g/dL (08/22/2011 17:00:00) ?? Hct [36.0-48.0 %] 30.5 % *LOW* (08/23/2011 14:15:00) ?? 31.1 % *LOW* (08/23/2011 04:14:00) ?? 36.6 % (08/22/2011 17:00:00) ?? MCV [81.0-99.0 fL] 84.9 fL (08/23/2011 04:14:00) ?? 84.9 fL (08/22/2011 17:00:00) ?? 86.6 fL (08/20/2011 10:25:00) ?? MCH [27.0-31.0 pg] 29.9 pg (08/23/2011 04:14:00) ?? 29.2 pg (08/22/2011 17:00:00) ?? 29.3 pg (08/20/2011 10:25:00) ?? MCHC [32.0-36.0 g/dL] 35.2 g/dL (08/23/2011 04:14:00) ?? 34.4 g/dL (08/22/2011 17:00:00) ?? 33.8 g/dL (08/20/2011 10:25:00) ?? RDW [11.5-14.5 %] 14.4 % (08/23/2011 04:14:00) ?? 14.0 % (08/22/2011 17:00:00) ?? 13.9 % (08/20/2011 10:25:00) ?? Platelet [133-450 K/CMM] 191 K/CMM (08/23/2011 04:14:00) ?? 185 K/CMM (08/22/2011 17:00:00) ?? 218 K/CMM (08/20/2011 10:25:00) ?? MPV [7.4-10.4 fL] 9.6 fL (08/23/2011 04:14:00) ?? 9.9 fL (08/22/2011 17:00:00) ?? 9.8 fL (08/20/2011 10:25:00) ?? Segs [45.0-75.0 %] 87.0 % *HI* (08/23/2011 04:14:00) ?? 92.1 % *HI* (08/22/2011 17:00:00) ?? 64.3 % (08/20/2011 10:25:00) ?? Lymphocytes [20.0-40.0 %] 7.7 % *LOW* (08/23/2011 04:14:00) ?? 6.9 % *LOW* (08/22/2011 17:00:00) ?? 23.3 % (08/20/2011 10:25:00) ?? Monocytes [2.0-12.0 %] 5.0 % (08/23/2011 04:14:00) ?? 0.8 % *LOW* (08/22/2011 17:00:00) ?? 9.6 % (08/20/2011 10:25:00) ?? Eosinophils [0.0-4.0 %] 0.1 % (08/23/2011 04:14:00) ?? 0.1 % (08/22/2011 17:00:00) ?? 2.3 % (08/20/2011 10:25:00) ?? Basophils [0.0-1.0 %] 0.2 % (08/23/2011 04:14:00) ?? 0.1 % (08/22/2011 17:00:00) ?? 0.5 % (08/20/2011 10:25:00) ?? Segs-Bands # [1.5-8.1 K/CMM] 10.7 K/CMM *HI* (08/23/2011 04:14:00) ?? 12.2 K/CMM *HI* (08/22/2011 17:00:00) ?? 4.7 K/CMM (08/20/2011 10:25:00) ?? Lymphocytes # [1.0-5.5 K/CMM] 0.9 K/CMM *LOW* (08/23/2011 04:14:00) ?? 0.9 K/CMM *LOW* (08/22/2011 17:00:00) ?? 1.7 K/CMM (08/20/2011 10:25:00) ?? Monocytes # [0.0-0.8 K/CMM] 0.6 K/CMM (08/23/2011 04:14:00) ?? 0.1 K/CMM (08/22/2011 17:00:00) ?? 0.7 K/CMM (08/20/2011 10:25:00) ?? Eosinophils # [0.0-0.5 K/CMM] 0.0 K/CMM (08/23/2011 04:14:00) ?? 0.0 K/CMM (08/22/2011 17:00:00) ?? 0.2 K/CMM (08/20/2011 10:25:00) ?? Basophils # [0.0-0.2 K/CMM] 0.0 K/CMM (08/23/2011 04:14:00) ?? 0.0 K/CMM (08/22/2011 17:00:00) ?? 0.0 K/CMM (08/20/2011 10:25:00) ?? RBC Morph Normal (08/22/2011 17:00:00) ? Plt Morph Normal (08/22/2011 17:00:00) ? PT [12.0-14.7 seconds] 13.1 seconds (08/20/2011 10:25:00) ? INR [0.85-1.17] 0.99 4 (08/20/2011 10:25:00) ? PTT [22.9-35.8 seconds] 31.0 seconds 5 (08/20/2011 10:25:00) ? 4Interpretive Data: RECOMMENDED RANGES FOR PROTIME INR: 2.0-3.0 for most medical and surgical thromboembolic states. 2.5-3.5 for artificial heart valves and recurrent embolism.INR SHOULD BE USED ONLY FOR PATIENTS ON STABLE ANTICOAGULANT THERAPY. 5Interpretive Data: Heparin Therapeutic Range: 57 - 92 Seconds
--- OUTSIDE RECORDS SUMMARY | 2018-09-01 14:08 | XMS REPORT | Summary of Care ---
Author Author [facility] Organization [facility] Address Unknown Phone Unavailable Encounter MAIKEL Andrews(HAMILTON) [id number] Date(s): 04/24/18 - 04/24/18 [facility] [address] [place] [address]- [facility] [phone] Discharge Disposition: Home or Self Care Attending Physician: Salbador Wade MD Referring Physician: Salbador Wade MD Vital Signs 1 2 3 Most recent to oldest [Reference Range]: 165.1 cm (04/22/18 9:19 AM) Height 128/94 mmHg (04/24/18 10:30 AM) 132/88 mmHg (04/24/18 10:00 AM) 138/72 mmHg (04/24/18 9:30 AM) Blood Pressure [90-140/60-90 mmHg] 13 BRMIN *LOW* (04/24/18 10:30 AM) 12 BRMIN *LOW* (04/24/18 10:00 AM) 12 BRMIN *LOW* (04/24/18 9:30 AM) Respiratory Rate [14-20 BRMIN] 140.909 kg (04/22/18 9:19 AM) Weight 51.69 m2 (04/22/18 9:19 AM) Body Mass Index Problem List Condition Effective Dates Status Health Status Informant Pain(Confirmed) Active Allergies, Adverse Reactions, Alerts Substance Reaction Severity Status aspirin Active Toradol Active EPINEPHrine Active Medications acetaminophen (ANES) Route: IV, Drug form: INJ, ONCE, Stop date: 04/24/18 8:27:00 CDT Start Date: 04/24/18 Stop Date: 04/24/18 Status: Completed AMIODarone 100 mg oral tablet 200 mg=2 tab, PO, Daily Start Date: 04/22/18 Status: Ordered ANES acetaminophen 1,000 mg, Route: PO, Drug form: TAB, ONCE, Dosing Weight 140.909, kg, PRN Pain S core 1-3, Start date: 04/24/18 8:44:00 CDT Start Date: 04/24/18 Stop Date: 04/24/18 Status: Discontinued ANES dexamethasone 4 mg, Route: IVP, ONCE, Dosing Weight 140.909, kg, PRN Nausea & Vomiting, Start date: 04/24/18 8:44:00 CDT Start Date: 04/24/18 Stop Date: 04/24/18 Status: Discontinued ANES diphenhydrAMINE 12.5 mg, Route: IVP, Drug form: INJ, Q6H, Dosing Weight 140.909, kg, PRN Itching , Start date: 04/24/18 8:44:00 CDT, Duration: 30 day, Stop date: 05/24/18 8:43:0 0 CDT Start Date: 04/24/18 Stop Date: 04/24/18 Status: Discontinued ANES esmolol 10 mg, Route: IVP, Q5Min, Dosing Weight 140.909, kg, PRN Other -See Comment, Sta rt date: 04/24/18 8:44:00 CDT, Duration: 5 doses or times, Stop date: Limited # of times Start Date: 04/24/18 Stop Date: 04/24/18 Status: Discontinued ANES fentaNYL 50 microgram, Route: IVP, Q5Min, Dosing Weight 140.909, kg, PRN Pain Score 7-10, Priority: Routine, Start date: 04/24/18 8:44:00 CDT, Duration: 2 doses or times, Stop date: Limited # of times Start Date: 04/24/18 Stop Date: 04/24/18 Status: Completed ANES fentaNYL 25 microgram, Route: IVP, Q5Min, Dosing Weight 140.909, kg, PRN Pain Score 4-6, Priority: Routine, Start date: 04/24/18 8:44:00 CDT, Duration: 4 doses or times, Stop date: Limited # of times Start Date: 04/24/18 Stop Date: 04/24/18 Status: Discontinued ANES flumazenil 0.2 mg, Route: IVP, PRN, Dosing Weight 140.909, kg, PRN Benzodiazepine Reversal, Initial dose, Start date: 04/24/18 8:44:00 CDT, Duration: 30 day, Stop date: 8:43:00 CDT Start Date: 04/24/18 Stop Date: 04/24/18 Status: Discontinued ANES hydrALAZINE 10 mg, Route: IVP, Q20Min, Dosing Weight 140.909, kg, PRN Elevated BP, Start carrie e: 04/24/18 8:44:00 CDT, Duration: 2 doses or times, Stop date: Limited # of varsha es Start Date: 04/24/18 Stop Date: 04/24/18 Status: Discontinued ANES HYDROmorphone 0.5 mg, Route: IVP, Q5Min, Dosing Weight 140.909, kg, PRN Pain Score 7-10, Start date: 04/24/18 8:44:00 CDT, Duration: 4 doses or times, Stop date: Limited # of times Start Date: 04/24/18 Stop Date: 04/24/18 Status: Discontinued ANES labetalol 10 mg, Route: IVP, Q5Min, Dosing Weight 140.909, kg, PRN Elevated BP, Start date : 04/24/18 8:44:00 CDT, Duration: 5 doses or times, Stop date: Limited # of time s Start Date: 04/24/18 Stop Date: 04/24/18 Status: Discontinued ANES meperidine 12.5 mg, Route: IVP, Q30Min, Dosing Weight 140.909, kg, PRN Other -See Comment, For shivering, Start date: 04/24/18 8:44:00 CDT, Duration: 2 doses or times, Sto p date: Limited # of times Start Date: 04/24/18 Stop Date: 04/24/18 Status: Discontinued ANES morphine Sulfate 4 mg, Route: IVP, Q5Min, Dosing Weight 140.909, kg, PRN Pain Score 7-10, Start d ate: 04/24/18 8:44:00 CDT, Duration: 3 doses or times, Stop date: Limited # of t imes Start Date: 04/24/18 Stop Date: 04/24/18 Status: Discontinued ANES morphine Sulfate 2 mg, Route: IVP, Q5Min, Dosing Weight 140.909, kg, PRN Pain Score 4-6, Start da te: 04/24/18 8:44:00 CDT, Duration: 5 doses or times, Stop date: Limited # of ti mes Start Date: 04/24/18 Stop Date: 04/24/18 Status: Discontinued ANES naloxone 0.4 mg, Route: IVP, Q2MIN, Dosing Weight 140.909, kg, PRN Narcotic Reversal, Sta rt date: 04/24/18 8:44:00 CDT, Duration: 8 doses or times, Stop date: Limited # of times Start Date: 04/24/18 Stop Date: 04/24/18 Status: Discontinued ANES ondansetron 4 mg, Route: IVP, ONCE, Dosing Weight 140.909, kg, PRN Nausea & Vomiting, Start date: 04/24/18 8:44:00 CDT Start Date: 04/24/18 Stop Date: 04/24/18 Status: Completed ANES oxyCODONE 5 mg, Route: PO, Drug form: TAB, Q4H, Dosing Weight 140.909, kg, PRN Pain Score 4-6, Start date: 04/24/18 8:44:00 CDT, Duration: 30 day, Stop date: 05/24/18 8:4 3:00 CDT Start Date: 04/24/18 Stop Date: 04/24/18 Status: Discontinued ANES oxyCODONE 10 mg, Route: PO, Drug form: TAB, Q4H, Dosing Weight 140.909, kg, PRN Pain Score 7-10, Start date: 04/24/18 8:44:00 CDT, Duration: 30 day, Stop date: 05/24/18 8 :43:00 CDT Start Date: 04/24/18 Stop Date: 04/24/18 Status: Discontinued ceFAZolin (ANES) Route: IV, Drug form: INJ, ONCE, Stop date: 04/24/18 8:22:00 CDT Start Date: 04/24/18 Stop Date: 04/24/18 Status: Completed dexamethasone (ANES) Route: IV, Drug form: INJ, ONCE, Stop date: 04/24/18 8:27:00 CDT Start Date: 04/24/18 Stop Date: 04/24/18 Status: Completed Eliquis 5 mg oral tablet 5 mg, PO, Q12H Start Date: 04/22/18 Status: Ordered fentaNYL (ANES) Route: IV, Drug form: INJ, ONCE, Stop date: 04/24/18 8:12:00 CDT Start Date: 04/24/18 Stop Date: 04/24/18 Status: Completed hydromorphone (ANES) Route: IV, Drug form: INJ, ONCE, Stop date: 04/24/18 8:27:00 CDT Start Date: 04/24/18 Stop Date: 04/24/18 Status: Completed Lactated Ringers Injection IV (ANES) 1000 mL Route: IV, Total Volume: 1,000, Start date: 04/24/18 7:27:00 CDT, Stop date: 07/04 8:27:00 CDT Start Date: 04/24/18 Stop Date: 04/24/18 Status: Completed Lactated Ringers Injection IV 1,000 mL 1,000 mL, Rate: 125 ml/hr, Infuse over: 8 hr, Route: IV, Dosing Weight 140.909 k g, Total Volume: 1,000, Start date: 04/24/18 8:44:00 CDT, Duration: 30 day, Stop date: 05/24/18 8:43:00 CDT, 2.59, m2 Start Date: 04/24/18 Stop Date: 04/24/18 Status: Discontinued Lactated Ringers IV 1,000 mL 1,000 mL, Rate: 40 ml/hr, Infuse over: 25 hr, Route: IV, Dosing Weight 140.909 k g, Total Volume: 1,000, Start date: 04/24/18 6:34:00 CDT, Duration: 30 day, Stop date: 05/24/18 6:33:00 CDT, 2.59, m2 Start Date: 04/24/18 Stop Date: 04/24/18 Status: Discontinued lidocaine (ANES) Route: IV, Drug form: INJ, ONCE, Stop date: 04/24/18 8:22:00 CDT Start Date: 04/24/18 Stop Date: 04/24/18 Status: Completed midazolam (ANES) Route: IV, Drug form: SOLN, ONCE, Stop date: 04/24/18 8:22:00 CDT Start Date: 04/24/18 Stop Date: 04/24/18 Status: Completed morphine Sulfate 2 mg, 2 mL, Route: IVP, Drug form: SOLN, Q3H, Dosing Weight 140.909, kg, PRN Jose n Score 1-3, Start date: 04/24/18 8:28:00 CDT, Duration: 30 day, Stop date: 07/04 8:27:00 CDT Notes: Preservative free. (Same as: Morphine Sulfate-PF) Start Date: 04/24/18 Stop Date: 04/24/18 Status: Discontinued ondansetron (ANES) Route: IV, Drug form: INJ, ONCE, Stop date: 04/24/18 8:27:00 CDT Start Date: 04/24/18 Stop Date: 04/24/18 Status: Completed Percocet 5/325 oral tablet 2 tab, Route: PO, Drug Form: TAB, Dosing Weight 140.909, kg, Q4H, PRN Other -See Comment, Start date: 04/24/18 8:28:00 CDT, Duration: 30 day, Stop date: 05/24/18 8:27:00 CDT Notes: Do not exceed 4gm/day of acetaminophen. (Same as: Percocet-5/325) Start Date: 04/24/18 Stop Date: 04/24/18 Status: Discontinued Phenergan 25 mg, Route: IM, ONCE, Dosing Weight 140.909, kg, Start date: 04/24/18 9:38:00 CDT, Stop date: 04/24/18 9:38:00 CDT Start Date: 04/24/18 Stop Date: 04/24/18 Status: Completed propofol (ANES) Route: IV, Drug form: INJ, ONCE, Stop date: 04/24/18 8:22:00 CDT Start Date: 04/24/18 Stop Date: 04/24/18 Status: Completed scopolamine 1.5 mg transdermal film 1 patch, Route: TOP, Drug Form: ERFILM, Dosing Weight 140.909, kg, ONCE, Start d ate: 04/24/18 7:04:00 CDT, Stop date: 04/24/18 7:04:00 CDT Start Date: 04/24/18 Stop Date: 04/24/18 Status: Completed scopolamine 1.5 mg transdermal film 1 patch, Route: TOP, Drug Form: ERFILM, Dosing Weight 140.909, kg, ONCE, Start d ate: 04/24/18 9:21:00 CDT, Stop date: 04/24/18 9:21:00 CDT Start Date: 04/24/18 Stop Date: 04/24/18 Status: Completed Zofran 4 mg, 2 mL, Route: IV, Drug form: INJ, Q8H, Dosing Weight 140.909, kg, PRN Nause a, Start date: 04/24/18 8:28:00 CDT, Duration: 30 day, Stop date: 05/24/18 8:27: 00 CDT Notes: (Same as: Zofran) MEDICATION WASTE Product Size: 4 mgProduct Was sherman: ___ mg Start Date: 04/24/18 Stop Date: 04/24/18 Status: Discontinued Results No data available for this section [...]
--- OUTSIDE RECORDS SUMMARY | 2018-09-01 14:09 | XMS REPORT | Summary of Care ---
Author Author [facility] Organization [facility] Address Unknown Phone Unavailable Encounter HQ Jose_randall(FIN) [id number] Date(s): 02/13/18 - 02/13/18 [facility] Outpatient Imaging [facility] [address] [phone] Encounter Diagnosis Pain in right knee (Final) - 02/19/18 Effusion, right knee (Final) - Discharge Disposition: Home or Self Care Attending Physician: Renetta Baron MD Vital Signs No data available for [...]
--- OUTSIDE RECORDS SUMMARY | 2018-09-01 14:09 | XMS REPORT | Summary of Care ---
Author Author [facility] Outpatient Imaging [facility] Address Unknown Phone Unavailable Encounter HQ Jose_randall(FIN) [id number] Date(s): 02/06/18 - 02/06/18 [facility] Outpatient Imaging [facility] [address] [facility], [address] [place] [phone] Encounter Diagnosis Pain in right knee (Final) - 02/12/18 Edema, unspecified (Final) - Bilateral primary osteoarthritis of knee (Final) - Discharge Disposition: Home or [...]
--- OUTSIDE RECORDS SUMMARY | 2018-09-01 14:09 | XMS REPORT | Summary of Care ---
Author Author Deanna Segal R.N. Organization Unknown Address [facility] Phone Unavailable Care Team Providers Care Scouring Machine Operator Name Role Phone TAYLOR SAEED M.D. Unavailable Unavailable LATASHA EDGE M.D. Unavailable Deanna Segal R.N. 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: Active Other specified conditions associated with female genital organs and menstrual cycle (629.89, N94.89) Status: Active Endometrial hyperplasia (621.30, N85.00) Status: Active Edema, pitting (782.3, R60.9) Status: Active Screening mammogram, encounter for (V76.12, Z12.31) Status: Active Intertriginous candidiasis (112.3, B37.2) Status: Active Screening for vaginal cancer (V76.47, Z12.72) Status: Active Vaginal discharge (623.5, N89.8) Status: Active Excessive and frequent menstruation with regular cycle (626.2, N92.0) Status: Active Nausea (787.02, R11.0) Status: Active BMI 50.0-59.9, adult (V85.43, Z68.43) Status: Active Essential (primary) hypertension (401.9, I10) Status: Active Noninfectious diarrhea (787.91, K52.9) Status: Active Moderate episode of recurrent major depressive disorder (296.32, F33.1) Status: Active Paroxysmal atrial fibrillation (427.31, I48.0) Status: Active Right knee pain, unspecified chronicity (719.46, M25.561) Status: Active Chondromalacia of knee, 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 Quantity: 90 LATASHA EDGE M.D. * Start : 09-Aug-2011 Active Ibuprofen TABS * Refills: 0 Active Amiodarone HCl - 100 MG Oral Tablet TAKE 1 TABLET EVERY MON, WED, FRI * Refills: 0 Active Eliquis 5 MG Oral Tablet 1 tab bid * Refills: 0 Active Ergocalciferol 00378 UNIT CAPS TAKE 1 CAPSULE WEEKLY * Refills: 0 Active Furosemide 20 MG Oral Tablet TAKE 1 TABLET DAILY PRN * Quantity: 90 Refills: 1 LATASHA EDGE M.D. Active BuPROPion HCl ER (XL) 300 MG Oral Tablet Extended Release 24 Hour TAKE 1 TABLET DAILY DIRECTED. * Quantity: 30 Refills: 2 LATASHA EDGE M.D. * Start : 29-Jan-2017 Active Nystatin 435991 UNIT/GM External Powder Apply to skin under breast 3 times daily. * Quantity: 2 Refills: 5 LATASHA EDGE M.D. * Start : 03-Mar-2017 Active 30 GM Bottle Glucosamine Chondr 1500 Complx Oral Capsule TAKE 1 CAPSULE DAILY * Quantity: 90 Refills: 1 LATASHA EDGE M.D. * Start : 05-Feb-2018 Active Celecoxib 200 MG Oral Capsule TAKE 1 CAPSULE TWICE DAILY WITH FOOD. * Quantity: 60 Refills: 2 TAYLOR SAEED M.D. * Start : 16-Feb-2018 Active Allergies and Adverse Reactions Name Dates Details Aspirin TABS (Allergy) Status: Active Doxycycline Monohydrate CAPS (Allergy) Status: Denied epinephrine (Allergy) Status: Active Toradol SOLN (Allergy) Status: Active Past Medical History Name Dates Details History of essential hypertension (V12.59, Z86.79) Status: Resolved History of gastroenteritis (V12.79, Z87.19) Status: Resolved Procedures Procedure Dates Details [QLH] URIC ACID Date: 05-Feb-2018 [QLH] SED RATE BY MODIFIED WESTERGREN Date: 05-Feb-2018 [U] XRAY KNEE 1 OR 2 VWS RIGHT 58668 Date: 13-Feb-2018 History of Cholecystectomy Laparoscopic Completed History of Tonsillectomy Completed History of Hysteroscopy Of Uterus Completed History of Dilation And Curettage Completed History of Hysterectomy Completed Immunization Name Dates Details Influenza on: 07-Dec-2010 Family History Name Dates Details Family history of Breast Cancer (V16.3) Status: Active Name Dates Details Family history of Breast Cancer (V16.3) Status: Active Family history of Uterine Cancer (V16.49) Status: Active Social History Name Dates Details - Status: Name Dates Details Never smoker Never smoker Vital Signs Date Test Result Details [id number] BP Systolic 138 mm[Hg] Status: Comments: Position: Sitting BP Diastolic 80 mm[Hg] Status: Comments: Position: Sitting Height 64 in Status: Weight 322.375 lb Status: Body Mass Index Calculated 55.34 kg/m2 Status: Body Surface Area Calculated 2.4 m2 Status: Temperature 97.8 f Status: Comments: Method: Temporal Heart Rate 76 /min Status: Respiration Rate 20 /min Status: Physical Findings 6 Status: Comments: Pain Scale Results Date Description Value Details :51 [QLH] SED RATE BY MODIFIED WESTERGREN Sedimentation Rate 12 {mm/hr} Range: 0-20 :51 [QLH] URIC ACID Uric Acid 5.7 mg/dl Range: 2.5-7.0 [id number] XRAY Knee 3 Views Bilateral 46721 Knee 3 Views Bilateral SEE NOTES Comments: EXAM: XR BILATERAL KNEE 3 VIEWSDATE: 02/06/2018 2:51 PM CDTINDICATION: - knee painCOMPARISON: None availableTECHNIQUE: Weightbearing views of right knee - 3 viewsWeightbearing views of left knee - 3 viewsFINDINGS:Right knee:No fracture, periosteal reaction, or erosions identified.Joint alignment is normal.No joint space narrowing identified.Minimal patellofemoral compartment osteophytes noted.Soft tissues are unremarkable.No joint effusion identified.Left knee:No fracture, periosteal reaction, or erosions identified.Joint alignment is normal.No joint space narrowing identified.Minimal patellofemoral compartment osteophytes noted.Soft tissues are unremarkable.No joint effusion identified.IMPRESSION:Minimal bilateral patellofemoral compartment osteoarthrosis.--Read by: Jason Velasquez MDDictated Date/time: 02/06/18 16:57Electronically Signed by: Jason Velasquez MD 02/07/1816:58FINAL REPORT [id number] MR Knee wo contrast 10450 Knee wo contrast MR SEE NOTES Comments: EXAMINATION: MRI of the right knee without contrast.HISTORY: M25.561 Pain in right knee - M25.561 Pain in right knee; AGE: 62 yearsGENDER: FemaleCOMPARISON: There are no radiographs a vailable for review.TECHNIQUE: Multiplanar, multisequence magnetic resonance imaging of the rightknee is performed with an extremity coil without contrast.FINDINGS:Menisci: Medial: The anterior horn, body, and posterior horn are intact.Lateral: The anterior horn, body, and posterior horn are intact.Ligaments: The anterior cruciate ligament and posterior cruciate ligament areintact. The medial collateral ligament and lateral collateral ligament complexare intact.Extensor mechanism: The extensor mechanism is intact.Muscles: There is normal signal intensity and muscle bulk of the musculature atthe knee.Cartilage: There is no significant reactive marrow change. The patellofemoralarticular cartilage is intact.. The medial tibiofemoral articular cartilagedemonstrates grade 2 chondral thinning.. The lateral tibiofemoral articularcartilage demonstrates grade 2 chondral thinning..Bone: There are no acute fractures. 6 mm T2 hyperintense focus in the distalfemoral metaphysis suggestive of chondral rest.Soft tissues: There is a large knee joint effusion. There is no Boateng's cyst.IMPRESSION:1. Grade 2 chondral thinning in the tibiofemoral compartments without focalchondral defect.2. Large knee joint effusion.--Read by: Víctor Hernandezictated Date/time: 02/13/18 11:02Electronically Signed by: Víctor Hernandez MD 02/13/1811:26FINAL REPORT Plan of Care Name Dates Details Planned Observations Planned Goals not documented Planned Encounters Appointment; TAYLOR SAEED M.D. On: 30-Mar-2018 15:15 Instructions Name Dates Details Instructions not documented Encounters Appointment; LATASHA EDGE M.D. Encounter Diagnosis: Problem not documented On: 29-Jan-2017 9:30 Appointment; LATASHA EDGE M.D. Encounter Diagnosis: Problem not documented On: 19-Feb-2017 8:00 Appointment; JOSIE FLYNN M.D. Encounter Diagnosis: Problem not documented On: 03-Mar-2017 8:00 Appointment; LATASHA EDGE M.D. Encounter Diagnosis: Problem not documented On: 30-Dec-2017 14:00 Appointment; LATASHA EDGE M.D. Encounter Diagnosis: Problem not documented On: 05-Feb-2018 15:45 Appointment; TAYLOR SAEED M.D. Encounter Diagnosis: Problem not documented On: 16-Feb-2018 15:30
--- OUTSIDE RECORDS SUMMARY | 2018-09-01 14:09 | XMS REPORT ---
Author [facility] Address Unknown Phone Unavailable Care Team Providers Care Personal Injury Specialist Name Role Phone Gely IQBAL Unavailable Unavailable Brian PITTS Unavailable Unavailable Problems This patient has no known problems. Allergies, Adverse Reactions, Alerts This patient has no known allergies or adverse reactions. Medications This patient has no known medications. Results Test Description Test Time Test Comments Text Results Atomic Results Result Comments KNEE RIGHT THREE VIEWS 2018-08-30 19:17:00 [facility] [address] [place] [address] Patient Name: SUJIT WEBER MR #: [id number] : 1955 Age/Sex: 63/F Req #: [id number] Adm Physician: Ordered by: BLAYNE TYSON PLASTERING SUPERVISOR Report #: [id number] Location: ER Room/Bed: Procedure: [id number] DX/KNEE RIGHT THREE VIEWS Exam Date: 08/30/18 Exam Time: 1852 REPORT STATUS: Signed EXAM: KNEE RIGHT THREE VIEWS, AP, crosstable lateral and oblique, nonstanding INDICATION: Knee pain after extra exercise is COMPARISON: None FINDINGS: BONES: No acute fractures. JOINTS: No malalignment. SOFT TISSUES: Large joint effusion. IMPRESSION: Large joint effusion without underlying fracture. Signed by: Dr. Gina Wright M.D. on 08/30/2018 7:18 PM Dictated By: GINA WRIGHT MD 17 Transcribed By: KOSTA on 08/30/181917 COPY TO: BLAYNE TYSON NP CHEST 2 VIEWS [place] [address] Patient Name: SUJIT WEBER MR #: [id number] : 1955 Age/Sex: 62/F Req #: [id number] Adm Physician: Ordered by: MARIA INES PITTS MD Report #: [id number] Location: ER Room/Bed: Procedure: [id number] DX/CHEST 2 VIEWS Exam Date: Exam Time: REPORT STATUS: Signed 2 views of the chest, PA and lateral Technique: 2 views of the chest Comparison: None Clinical history: Chest pain with rapid heart rate DISCUSSION: Heart/mediastinum: Mildly tortuous aorta. Heart size is upper limits of normal. Lungs/pleural spaces: No consolidation or edema, effusion or pneumothorax. IMPRESSION: No acute abnormality Signed by: Dr Carolyn Galo MD on 12/13/2017 12:45 AM Dictated By: CAROLYN GALO MD Transcribed By: KOSTA on 12/13/1744 COPY TO: MARIA INES PITTS MD
--- OUTSIDE RECORDS SUMMARY | 2018-09-01 14:09 | XMS REPORT | Summary of Care ---
Author Author [facility] [place] Organization [facility] [place] Address Unknown Phone Unavailable Encounter HQ Jose_randall(FIN) [id number] Date(s): 06/06/18 - 06/06/18 [facility] Outpatient [facility] - [place] [address] [phone] Discharge Disposition: Home or Self Care Attending Physician: Salbador Wade MD Referring Physician: Salbador Wade MD Vital Signs No data available for [...]
--- OUTSIDE RECORDS SUMMARY | 2018-09-01 14:09 | XMS REPORT | Summary of Care ---
Author Author [facility] Address Unknown Phone Unavailable Encounter HQ Encntr_randall(FIN) [id number] Date(s): 04/28/18 - 05/27/18 [facility] Discharge Disposition: Home or Self Care Attending Physician: Salbador Wade MD Vital Signs No [...]
== END 2018-08-30 22:19 | disposition home or self-care (01) ==
LOC: ER 18:23
DX: M25.561 Pain in right knee (principal); R26.2 Difficulty in walking, not elsewhere classified; I10 Essential (primary) hypertension; I48.91 Unspecified atrial fibrillation
CPT/HCPCS: 73562; 99283; J1100; J2360